=== PATIENT | female | born 1975 | race Caucasian/White ===

== ENCOUNTER → 2017-10-24 | Outpatient (CLI) | payer BC ==
[2017-10-24 09:13] VITALS: BP 112/78; PULSE 80; BMI 31.1
--- NOTE | 2017-10-24 10:31 | P.GSHP ---
History of Present Illness H&P Date: 10/24/17 Chief Complaint: changes on ultrasound of the breast Patient on a routine mammogram was noted to have changes noted in the left breast in September 2017, an ultrsound was felt to be non-suspicious and repeat diagnostic mammogram in 6 months recommended. The right breast was tender which has resolved but n ultrasound of that side did not show anything of concern. Patient does not feel anything in her breast. Patient complains of left nipple discharge. The color is amin, no blood. This has been present for about 1 year. It happens spontaneously. family history: paternal grandparents cancer uncertain of type cousin: bone cancer menarche:11 : 3, first live at 26, breast fed: none; 1 termination at 19 does not have periods has Nexplanon, needs changed every 5 years for Control hormones: none social: 1/2 PPD alcohol: none drugs: none past surgical history: 1. two nodes removed form neck 2. G/B 3. panniculectomy 4. lap band removed and the sleeve 5. two C-Sections past medical history: 1. HTN 2. heart burn 3. migrains 4. anxiety and depression - Constitutional Constitutional: Reports as per HPI, Reports sweats - EENT Eyes: denies blurred vision, denies pain Ears: deny: decreased hearing, earache Ears, nose, mouth and throat: Reports headache, Denies sore throat - Breasts Breasts: bilateral: as per HPI - Cardiovascular Cardiovascular: Denies chest pain, Denies shortness of breath - Respiratory Respiratory: Denies cough, Denies 7 - Gastrointestinal Gastrointestinal: Denies abdominal pain, Denies diarrhea, Denies nausea, Denies vomiting - Genitourinary (Female) Genitourinary: Reports as per HPI - Menstruation Menstruation: Reports amenorrhea on BC - Genitourinary (Male) Genitourinary: Denies dysuria, Denies hematuria - Musculoskeletal Musculoskeletal: Reports myalgias - Integumentary Integumentary: Reports pruritus, Denies rash - Neurological Neurological: Reports migraines, Reports paresthesias, Denies numbness, Denies weakness - Psychiatric Psychiatric: Reports anxiety, Reports depression - Endocrine Endocrine: Reports fatigue, Denies weight change - Hematologic/Lymphatic Hematologic/Lymphatic: Reports as per HPI - Allergic/Immunologic Allergic/Immunologic: Reports seasonal allergies Past Medical History Past Medical History: No Reported History History of Any Multi-Drug Resistant Organisms: None Reported Past Surgical History: Bariatric Surgery, Section Additional Past Surgical History / Comment(s): GALL BLADDER REMOVED IN 2003, LAP BAND 2008, GASTRIC SLEEVE 2013, LYMPHNODE REMOVAL (ENLARGED) Past Psychological History: Anxiety, Depression Smoking Status: Current every day smoker - Past Family History Mother Family Medical History: Fibromyalgia, Osteoarthritis (OA) Father Family Medical History: Osteoarthritis (OA) Additional Family Medical History / Comment(s): UNKNOWN HEART ISSUE Medications and Allergies Home Medications Medication Instructions Recorded Confirmed Type Citalopram Hydrobromide [CeleXA] 20 tab PO DAILY 10/24/17 10/24/17 History Cyclobenzaprine [Flexeril] 10 tab PO PC-BID 10/24/17 10/24/17 History Lisinopril-Hctz 10-12.5 mg 10 tab PO DAILY 10/24/17 10/24/17 History [Zestoretic 10-12.5] Omeprazole 20 cap PO DAILY 10/24/17 10/24/17 History Rizatriptan Odt [Maxalt IT PROGRAM AUDITOR] 10 tab PO PC-BID 10/24/17 10/24/17 History Topiramate [Topamax] 50 tab PO DAILY 10/24/17 10/24/17 History busPIRone HCL 10 tab PO DAILY 10/24/17 10/24/17 History Allergies Allergy/AdvReac Type Severity Reaction Status Date / Time ibuprofen Allergy Chest Pain Unverified 10/24/17 09:40 NSAIDS (Non-Steroidal Allergy Chest Pain Unverified 10/24/17 09:40 Anti-Inflamma Surgical - Exam Vital Signs Pulse BP Pulse Ox 80 112/78 100 10/24/17 09:07 10/24/17 09:07 10/24/17 09:07 - General obese - Eyes normal ocular movement, no icteric - ENT normal pinna - Neck no masses, trachea midline - Respiratory normal respiratory effort, clear to auscultation - Cardiovascular Rhythm: regular Heart Sounds: normal: S1, S2 - Abdomen Abdomen: soft, non tender - Neurologic no disoriented, no combative - Musculoskeletal normal gait, normal posture - Psychiatric oriented to time, oriented to person, oriented to place, speech is normal, memory intact Breast exam: right breast: smaller than the left breast, fibrocystic changes no masses of concern right axilla: no adenopathy of concern left breast: larger than the right breast, fibrocystic changes, left breast nipple discharge amin, hemocult negative left axilla: no adenopathy of concern Results mammogram reports reviewed Assessment and Plan Assessment: Imp/Plan: 1. monographic changes, repeat bilateral ultrasound in 6 months and left breast diagnostic mammgram in 6 months 2. left breast nipple discharge 3. myalgas 4. migrains Plan: 1. repeat x-rays as above 2. medical managements of medical problems 3. follow up in six months CC: Dr. Arnaldo Davis
--- NOTE | 2017-10-24 13:46 | P.PN ---
Progress Note - Text Progress Note Date: 10/24/17 The patient underwent a left breast ultrasound. The left breast ultrasound revealed a complex cyst lesion/cyst in the area where the mammographic abnormality was noted. After review with radiology does been recommended that aspiration/possible biopsy be performed. The patient understands the risks and benefits and this will be scheduled in the near future. Impression/plan: 1. Left breast cyst aspiration/biopsy 2. Follow-up approximately a week after the procedure cc: Dr. Arnaldo Davis
== END | disposition home or self-care (01) ==
LOC: WWCWWP 09:01
PROVIDERS: ATTEND Surgery

== ENCOUNTER → 2017-10-24 | Outpatient (CLI) | payer BC ==
--- NOTE | 2017-10-24 14:25 | USB ---
Reason for exam: clinical finding. History: Taking hormonal contraceptives for 1 month. US Breast LT Technologist: Nataliia Kolb RT (R)(M) Left complete breast ultrasound includes all four quadrants, the retroareolar region and axilla. Finding demonstrates a 11 x 5 x 10mm cystic cluster at 12-12:30. Appears to correlate with mammographic abnoramlity. These results were verbally communicated with the patient and result sheet given to the patient on 10/24/17. ASSESSMENT: Suspicious, BI-RAD 4 RECOMMENDATION: Ultrasound core biopsy of the left breast. FNA +/- (can be performed if desired, as patient is anxious with strong family history) PRELIMINARY REPORT CALLED AND FAXED TO DR. WHITNEY ON 10/24/17.
== END | disposition home or self-care (01) ==
LOC: RADUSWWP 13:07
PROVIDERS: ATTEND Surgery
DX: R92.8 Other abnormal and inconclusive findings on diagnostic imaging of breast (principal)

== ENCOUNTER → 2017-11-04 | Day surgery (SDC) | payer BC ==
[2017-11-04 12:23] VITALS: RESP 16; BMI 29.2
[2017-11-04 13:56] VITALS: BP 113/81; PULSE 67; TEMP 98.1
--- NOTE | 2017-11-04 14:17 | USB ---
EXAMINATION TYPE: US biopsy breast VAD LT DATE OF EXAM: 11/04/2017 CLINICAL HISTORY: R92.8 ABN MAMMO. TECHNIQUE: Ultrasound guided core biopsy of left breast. COMPARISON: Ultrasound 10/24/2017 FINDINGS: The procedure of ultrasound guided core biopsy was explained to the patient. Benefits, alternatives, and risks were discussed. An informed consent was then obtained. The patient was placed in supine positioning for imaging and for the procedure. The overlying skin was prepped with Betadine and draped in usual sterile fashion. Lidocaine buffered with bicarbonate was used as anesthetic into the skin and subcutaneous tissue up to area of concern in the left breast. A small catherine was made with surgical scalpel. Under ultrasound guidance, a 12-gauge vacuum assisted biopsy gun device was used to obtain 4 core samples. A biopsy clip was left in biopsy location. The patient tolerated the procedure well without any immediate complication. Discharge instructions were discussed with the patient. The patient was kept in the radiology department for short stay after the procedure and then discharged home in stable condition. Postprocedure mammogram was obtained. Clip is present. IMPRESSION: 1. Successful ultrasound-guided vacuum-assisted core biopsy left breast 12:00 lesion. Recommendations: 1. Recommendations are pending pathology results. Pathology Results: Benign LEFT BREAST, NEEDLE CORE BIOPSY: Fibrocystic change. Recommendation Follow up ultrasound of the left breast in 6 months. WILDA
== END ==
LOC: RADUSWWP 11:53
PROVIDERS: ATTEND Surgery
DX: N60.12 Diffuse cystic mastopathy of left breast (principal); N63.20 Unspecified lump in the left breast, unspecified quadrant; Z88.6 Allergy status to analgesic agent; Z88.8 Allergy status to other drugs, medicaments and biological substances
CPT/HCPCS: 88305; 77065; 19083; A4648; J2001

== ENCOUNTER → 2017-11-14 | Outpatient (CLI) | payer BC ==
[2017-11-14 10:32] VITALS: BP 123/87; PULSE 87; BMI 29.2
--- NOTE | 2017-11-14 10:51 | P.PN ---
Progress Note - Text Progress Note Date: 11/14/17 Patient is status post left breast core biopsy on 11/04/17. pathology was fibrocystic disease. The lesion was seen on mammogram and also ultrasound. It was biopsied via ultrasound. The x-rays were reviewed with the radiologist and felt could repeat mammogram in 6 months with an appointment at that time. The patient has no complaints. PE: left breast: mild echymosis at the biopsy site no hematoma of concern no infection IMP/PlLAN: 1.BENIGN core biopsy of the left breast, follow up in 6 months cc: DR. Arnaldo Davis
== END ==
LOC: WWCWWP 09:45
PROVIDERS: ATTEND Surgery
DX: N60.12 Diffuse cystic mastopathy of left breast (principal); Z53.9 Procedure and treatment not carried out, unspecified reason

== ENCOUNTER → 2020-02-08 | Outpatient (CLI) | payer BC ==
--- NOTE | 2020-02-08 11:28 | FL ---
EXAMINATION TYPE: FL barium swallow w video DATE OF EXAM: 02/08/2020 MODIFIED SWALLOW / DEGLUTITION STUDY CLINICAL HISTORY: Dysphagia. History of neurological syndrome or disorder. TECHNIQUE: Deglutition study is performed utilizing thin liquid barium, honey and nectar thick liqui d barium, barium thick portable, and barium coated cracker. Total of 56 seconds of fluoroscopic time. 0 spot images saved to PACS. COMPARISON: None. FINDINGS: The oral and pharyngeal phases show satisfactory initiation and propagation with all modali ties tested. Normal mastication is seen with solid modalities tested. There is no evidence of penet ration or aspiration with any modality tested. No significant pharyngeal residue was appreciated. IMPRESSION: Normal deglutition study. Please refer to speech therapist notes for further details if necessary.
== END | disposition home or self-care (01) ==
LOC: RADFLMAIN 10:24
PROVIDERS: ATTEND Family Medicine
DX: R13.10 Dysphagia, unspecified (principal)
CPT/HCPCS: 74230

== ENCOUNTER → 2021-02-21 | Outpatient (CLI) | payer BC ==
--- NOTE | 2021-02-21 15:39 | XR ---
Lumbosacral spine HISTORY: Back pain 5 views of lumbosacral spine, no comparisons Lumbar vertebral bodies show preserved height and alignment. Mineralization may be slightly reduced. There is multilevel spondylosis. Some loss of disc height is present at 4, L2-3 and L1-2, L4-5. Scler osis is present in the posterior elements of the lower lumbar spine. There is no evident spondylolysi s. Surgical clips are present right upper quadrant. IMPRESSION: Degenerative disc disease and facet arthropathy.
== END | disposition home or self-care (01) ==
LOC: RADXRMAIN 15:04
PROVIDERS: ATTEND Family Medicine
DX: M51.36 Other intervertebral disc degeneration, lumbar region (principal); M47.816 Spondylosis without myelopathy or radiculopathy, lumbar region
CPT/HCPCS: 72110

== ENCOUNTER 2021-09-18 12:16 | Observation (INO) | payer BC ==
[2021-09-18] MEDS ORDERED: SODIUM CHLORIDE 0.9% 500 ML 500 ML IV STA (12:48)
--- NOTE | 2021-09-18 13:04 | ED ---
General Adult HPI - General Chief complaint: Neuro Symptoms/Deficit Stated complaint: neuro issue Time Seen by Provider: 09/18/21 12:25 Source: patient, RN notes reviewed, old records reviewed Mode of arrival: ambulatory Limitations: no limitations - History of Present Illness Initial comments: This is a 46-year-old female who presents emergency department stating that on she was having some double vision she can only see normal out of one ey e. Patient states that she also is having trouble expressing herself and her speech was very slow. Patient states his symptoms continued Saturday and Saturday and today there pretty much resolved but her neurologist told her to come to the emergency department. Evaluated. Patient states she feels so she still can't think straight but she has no obvious deficits. She denies any headache p atient denies numbness or weakness. Patient denies any chest pain palpitations difficulty breathing shortness of breath. Patient denies abdominal pain patient has nausea vomiting diarrhea. Patient denies any recent fever chills or cough. 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] 10 mg PO BID PRN 10/24/17 09/18/21 Topiramate [Topamax] 50 tab PO BID 10/24/17 09/18/21 busPIRone HCL 10 tab PO TID 10/24/17 09/18/21 Albuterol Sulfate [Albuterol 2 puff PO RT-Q6H PRN 09/18/21 09/18/21 Sulfate Hfa] Baclofen [Lioresal] 10 mg PO QID 09/18/21 09/18/21 Citalopram Hydrobromide [CeleXA] 40 mg PO HS 09/18/21 09/18/21 Folic Acid 1 mg PO HS 09/18/21 09/18/21 Gabapentin 300 mg PO TID 09/18/21 09/18/21 Guselkumab [Tremfya] 100 mg SQ Q56D 09/18/21 09/18/21 Magnesium 200 mg PO DAILY 09/18/21 09/18/21 Meclizine [Antivert] 25 mg PO TID PRN 09/18/21 09/18/21 Mexiletine HCl 150 mg PO HS 09/18/21 09/18/21 Pantoprazole Sodium [Protonix] 40 mg PO DAILY 09/18/21 09/18/21 Simvastatin [Zocor] 40 mg PO HS 09/18/21 09/18/21 Sucralfate [Carafate] 1 gm PO ACHS 09/18/21 09/18/21 Topiramate [Topamax] 50 mg PO BID 09/18/21 09/18/21 carBAMazepine [TEGretol XR] 600 mg PO Q12H 09/18/21 09/18/21 lisinopriL [Zestril] 5 mg PO HS 09/18/21 09/18/21 traZODone HCL 50 - 100 mg PO HS PRN 09/18/21 09/18/21 Allergies Allergy/AdvReac Type Severity Reaction Status Date / Time ibuprofen Allergy Mild Chest Pain Verified 09/18/21 14:19 NSAIDS (Non-Steroidal Allergy Chest Pain Verified 09/18/21 14:19 Anti-Inflamma prochlorperazine AdvReac Hallucinati Verified 09/18/21 14:19 [From Compazine] ons Review of Systems ROS Statement: Those systems with pertinent positive or pertinent negative responses have been documented in the HPI. ROS Other: All systems not noted in ROS Statement are negative. Past Medical History Past Medical History: GERD/Reflux, Hypertension Additional Past Medical History / Comment(s): migraines, autoimmune disease History of Any Multi-Drug Resistant Organisms: None Reported Past Surgical History: Bariatric Surgery, Section, Cholecystectomy Additional Past Surgical History / Comment(s): LAP BAND 2008, GASTRIC SLEEVE 2013, LYMPHNODE REMOVAL (ENLARGED) x2 bilateral neck 1997. Past Anesthesia/Blood Transfusion Reactions: No Reported Reaction Past Psychological History: Anxiety, Depression Past Alcohol Use History: Rare Past Drug Use History: None Reported - Past Family History Mother Family Medical History: Fibromyalgia, Osteoarthritis (OA) Father Family Medical History: Osteoarthritis (OA) Additional Family Medical History / Comment(s): UNKNOWN HEART ISSUE General Exam - General Exam Comments Initial Comments: GENERAL: Patient is well-developed and well-nourished. Patient is nontoxic and well- hydrated and is in no acute distress. ENT: Neck is soft and supple. No significant lymphadenopathy is noted. Oropharynx is clear. Moist mucous membranes. Neck has full range of motion without eliciting any pain. EYES: The sclera were anicteric and conjunctiva were pink and moist. Extraocular movements were intact and pupils were equal round and reactive to light. Eyelids were unremarkable. PULMONARY: Unlabored respirations. Good breath sounds bilaterally. No audible rales rhonchi or wheezing was noted. CARDIOVASCULAR: There is a regular rate and rhythm without any murmurs gallops or rubs. ABDOMEN: Soft and nontender with normal bowel sounds. SKIN: Skin is clear with no lesions or rashes and otherwise unremarkable. NEUROLOGIC: Patient is alert and oriented x3. Cranial nerves II through XII are grossly intact. Motor and sensory are also intact. Normal speech, volume and content. Symmetrical smile. NIH is 0 MUSCULOSKELETAL: Normal extremities with adequate strength and full range of motion. No lower extremity swelling or edema. No calf tenderness. LYMPHATICS: No significant lymphadenopathy is noted PSYCHIATRIC: Normal psychiatric evaluation. Limitations: no limitations Course Vital Signs 09/18/21 12:22 Temperature 98.4 F Pulse Rate 81 Respiratory 16 Rate Blood Pressure 128/88 O2 Sat by Pulse 97 Oximetry Medical Decision Making - Medical Decision Making EKG shows sinus rhythm at 72 bpm CA interval 166 dresses 95 QT interval 360 QTC is 392. Patient's EKG shows no ST segment elevation or depression. Chest x-ray shows no acute abnormality. CT of the brain shows no acute abnormalities. CT angiogram of the head neck shows a little compression at one point on the carotid artery secondary to possibly a lymph node. I spoke with Dr. Landrum he agreed to admit the patient I admitted the patient and I admitted the patient consult the neurology. - Lab Data Result diagrams: 09/18/21 12:45 09/18/21 12:45 Lab Results 09/18/21 09/18/21 09/18/21 Range/Units 12:45 12:45 12:45 WBC 4.6 (3.8-10.6) k/uL RBC 4.07 (3.80-5.40) m/uL Hgb 12.3 (11.4-16.0) gm/dL Hct 39.2 (34.0-46.0) % MCV 96.4 (80.0-100.0) fL MCH 30.1 (25.0-35.0) pg MCHC 31.2 (31.0-37.0) g/dL RDW 14.0 (11.5-15.5) % Plt Count 221 (150-450) k/uL MPV 8.5 Neutrophils % 59 % Lymphocytes % 32 % Monocytes % 5 % Eosinophils % 2 % Basophils % 0 % Neutrophils # 2.7 (1.3-7.7) k/uL Lymphocytes # 1.5 (1.0-4.8) k/uL Monocytes # 0.3 (0-1.0) k/uL Eosinophils # 0.1 (0-0.7) k/uL Basophils # 0.0 (0-0.2) k/uL PT 9.7 (9.0-12.0) sec INR 0.9 (<1.2) APTT 23.7 (22.0-30.0) sec Sodium 139 (137-145) mmol/L Potassium 4.4 (3.5-5.1) mmol/L Chloride 107 (98-107) mmol/L Carbon Dioxide 23 (22-30) mmol/L Anion Gap 9 mmol/L BUN 17 (7-17) mg/dL Creatinine 0.80 (0.52-1.04) mg/dL Est GFR (CKD-EPI)AfAm >90 (>60 ml/min/1.73 sqM) Est GFR (CKD-EPI)NonAf 88 (>60 ml/min/1.73 sqM) Glucose 91 (74-99) mg/dL Calcium 8.5 (8.4-10.2) mg/dL Total Bilirubin 0.6 (0.2-1.3) mg/dL AST 30 (14-36) U/L ALT 22 (4-34) U/L Alkaline Phosphatase 78 (38-126) U/L Troponin I (0.000-0.034) ng/mL Total Protein 7.2 (6.3-8.2) g/dL Albumin 4.1 (3.5-5.0) g/dL 09/18/21 Range/Units 12:45 WBC (3.8-10.6) k/uL RBC (3.80-5.40) m/uL Hgb (11.4-16.0) gm/dL Hct (34.0-46.0) % MCV (80.0-100.0) fL MCH (25.0-35.0) pg MCHC (31.0-37.0) g/dL RDW (11.5-15.5) % Plt Count (150-450) k/uL MPV Neutrophils % % Lymphocytes % % Monocytes % % Eosinophils % % Basophils % % Neutrophils # (1.3-7.7) k/uL Lymphocytes # (1.0-4.8) k/uL Monocytes # (0-1.0) k/uL Eosinophils # (0-0.7) k/uL Basophils # (0-0.2) k/uL PT (9.0-12.0) sec INR (<1.2) APTT (22.0-30.0) sec Sodium (137-145) mmol/L Potassium (3.5-5.1) mmol/L Chloride (98-107) mmol/L Carbon Dioxide (22-30) mmol/L Anion Gap mmol/L BUN (7-17) mg/dL Creatinine (0.52-1.04) mg/dL Est GFR (CKD-EPI)AfAm (>60 ml/min/1.73 sqM) Est GFR (CKD-EPI)NonAf (>60 ml/min/1.73 sqM) Glucose (74-99) mg/dL Calcium (8.4-10.2) mg/dL Total Bilirubin (0.2-1.3) mg/dL AST (14-36) U/L ALT (4-34) U/L Alkaline Phosphatase (38-126) U/L Troponin I <0.012 (0.000-0.034) ng/mL Total Protein (6.3-8.2) g/dL Albumin (3.5-5.0) g/dL Disposition Clinical Impression: TIA (transient ischemic attack) Disposition: ADMITTED IP TO THIS HOSP Referrals: Claudia Lino MD [Primary Care Provider] - 1-2 days Time of Disposition: 15:31
[2021-09-18 13:05] LABS: Basophils % (A) 0 %; Eosinophils # (A) 0.1 k/uL (0-0.7); Eosinophils % (A) 2 %; HCT 39.2 % (34.0-46.0); HGB 12.3 gm/dL (11.4-16.0); Lymphocytes # (A) 1.5 k/uL (1.0-4.8); Lymphocytes % (A) 32 %; MCH 30.1 pg (25.0-35.0); MCHC 31.2 g/dL (31.0-37.0); MCV 96.4 fL (80.0-100.0); Mean Platelet Volume 8.5; Monocytes # (A) 0.3 k/uL (0-1.0); Monocytes % (A) 5 %; Neutrophils # (A) 2.7 k/uL (1.3-7.7); Neutrophils % (A) 59 %; Platelet Count 221 k/uL (150-450); RBC 4.07 m/uL (3.80-5.40); WBC 4.6 k/uL (3.8-10.6)
[2021-09-18 13:14] LABS: INR 0.9 (<1.2); Partial Thromboplastin Time 23.7 sec (22.0-30.0); Prothrombin Time 9.7 sec (9.0-12.0)
--- NOTE | 2021-09-18 13:48 | XR ---
EXAMINATION TYPE: XR chest 2V DATE OF EXAM: 09/18/2021 COMPARISON: NONE HISTORY: Altered mental status TECHNIQUE: Frontal and lateral views of the chest are obtained. FINDINGS: Increased density of the mid and lower lung zones bilaterally, likely due to the overlying breast and chest wall shadows. Grossly unremarkable lungs otherwise. No sizable pleural effusion or definite pneumothorax. No gross cardiomegaly. Mild degenerative change s of the lower thoracic spine. IMPRESSION: As above.
[2021-09-18 13:59] LABS: ALT 22 U/L (4-34); AST 30 U/L (14-36); African American GFR (CKD) >90 (>60 ml/min/1.73 sqM); Albumin 4.1 g/dL (3.5-5.0); Alkaline Phosphatase 78 U/L (38-126); Anion Gap 9 mmol/L; Blood Urea Nitrogen 17 mg/dL (7-17); Calcium 8.5 mg/dL (8.4-10.2); Carbon Dioxide 23 mmol/L (22-30); Chloride 107 mmol/L (98-107); Glucose 91 mg/dL (74-99); Non-African American GFR(CKD) 88 (>60 ml/min/1.73 sqM); Sodium 139 mmol/L (137-145); Total Bilirubin 0.6 mg/dL (0.2-1.3); Total Protein 7.2 g/dL (6.3-8.2)
--- NOTE | 2021-09-18 14:00 | CT ---
EXAMINATION TYPE: CT brain wo con DATE OF EXAM: 09/18/2021 COMPARISON: None. HISTORY: memory loss, GONZALEZ, double vision, loss of balance CT DLP: 1001 mGycm. Automated Exposure Control for Dose Reduction was Utilized. TECHNIQUE: CT scan of the head is performed without contrast. FINDINGS: There is no acute intracranial hemorrhage, mass effect, or midline shift identified. The ventricles and sulci are within normal limits in size. Castillo-white matter differentiation is maintai radha. Bilateral basal ganglia calcifications. Bend-of-xwsbqysp fluid in the bilateral ethmoid and maxi llary sinuses. Globes are intact bilaterally. IMPRESSION: No acute intracranial hemorrhage or midline shift is seen. Bilateral Acute maxillary and ethmoid sinus disease.
--- NOTE | 2021-09-18 14:15 | CT ---
EXAMINATION TYPE: CT angio head neck DATE OF EXAM: 09/18/2021 HISTORY: memory loss, GONZALEZ, double vision, loss of balance COMPARISON: Nonenhanced CT brain performed earlier same day. CT DLP: 555.5 mGycm. Automated Exposure Control for Dose Reduction was Utilized. TECHNIQUE: CTA scan of the head and neck is performed with IV Contrast, patient injected with 65 mL of Isovue 370, axial images are obtained, coronal and sagittal reformatted images are reviewed. 3D re constructed images are created on an independent workstation and reviewed. FINDINGS: Carotid/Vascular Structures: Motion artifacts. Slightly reduced caliber of the most superior aspect o f the right common carotid artery just inferior to its bifurcation with adjacent 5 mm soft tissue nod ule/lymph node (image #[id number], series [id number]), nonspecific. Otherwise normal caliber and enhancement of the neck arteries and intracranial arteries without significant stenosis, occlusion, dissection, aneurys m or AV malformation. Patent major intracranial venous sinuses. Other: No intracranial abnormal enhancement. Mucosal thickening of the maxillary sinuses and ethmoid air cells. Right thyroid lobe marginally enhancing lesion measuring 17 mm, for correlation with thyro id ultrasound results. IMPRESSION: Smooth indentation with slightly reduced caliber of the most superior aspect of the right common god[place] tid artery as described above, possibly due to adjacent lymph node/nodule, nonspecific. Further PET s can assessment can be considered. Otherwise no significant arterial abnormality is seen head or the neck. Incidental findings and recom mendation as described above.
[2021-09-18 14:21] LABS: Potassium 4.4 mmol/L (3.5-5.1)
[2021-09-18] MEDS ORDERED: ACETAMINOPHEN TAB 500 MG TAB PO STA (16:14)
[2021-09-18] MEDS ORDERED: ONDANSETRON 4 MG/2 ML VIAL IVP STA (19:09)
[2021-09-18] MEDS ORDERED: ALBUTEROL HFA INHALER INHALATION PRN (19:48)
[2021-09-18] MEDS ORDERED: AUTO INJCT SQ SCH (20:00)
[2021-09-18] MEDS ORDERED: GUSELKUMAB 100 MG/ML SQ SCH (20:00)
[2021-09-18] MEDS: BACLOFEN 10 MG TAB PO SCH (21:28)
[2021-09-18] MEDS: TOPIRAMATE 25 MG TAB PO SCH (21:28)
[2021-09-18] MEDS: CITALOPRAM HYDROBROMIDE 20 MG TAB PO SCH (21:28)
[2021-09-18] MEDS: busPIRone HCl 10 MG TAB PO SCH (21:29)
[2021-09-18] MEDS: lisinopriL 5 MG TAB PO SCH (21:29)
[2021-09-18] MEDS: ATORVASTATIN 20 MG TAB PO SCH (21:29)
[2021-09-18] MEDS: GABAPENTIN 300 MG CAP PO SCH (21:29)
--- NOTE | 2021-09-18 21:35 | P.HPIM ---
History of Present Illness H&P Date: 09/18/21 HISTORY OF PRESENT ILLNESS 46-year-old female one of Dr. Lino's patient with past medical history of fibromyalgia, cramp fasciculation syndrome, history of hypertension and hyperlipidemia who apparently seen a neurologist at [facility] for cramp fasciculation syndrome been followed for some urology Sign and symptoms similar to multiple sclerosis except never been diagnosed with MS. Patient apparently developed to have weird symptoms since consistent with mild paresthesia of the right upper extremity with double vision and memory loss along with significant abnormal balance and gait. She refuses to go to the emergency room about point but her symptoms where slightly bit better but not resolve on Saturday her symptoms become much worse apparently she called her urologist in [facility] with cyst of having patient comes for evaluation in the emergency department. Patient was seen and evaluated at the time she continue complain of mild paresthesia of the right upper extremity still having to feel with mild double vision along with expressive aphasia Kathy symptoms and slight confusion with generalized weakness and fatigue overall not been able to ambulate and walk on her own she declined any shortness of breath or chest pain no generalized abdominal pain and discomfort had feeling of low- grade temperature with no chills.was seen and evaluated her lab with chemistry CBC PT/INR troponin were all normal. Patient had CT of the brain showed no acute intracranial hemorrhage or midline shift bilateral acute maxillary and ethmoid sinus disease was found. CTA was done as well and shows smooth indentation with slight the reduced caliber of the most superior aspect of the right common carotid artery possibly due to adjacent lymph node/nodular. Otherwise rest of her CTA was negative. Chest x-ray showed no infiltrate or any other abnormality. Patient was admitted to the hospital at this point with above diagnoses with be seen neurology workup for TIA/CVA will be done at this time. Whether she is going to go for an MRI of the brain or not to be determined by neurology. REVIEW OF SYSTEMS Constitutional: No fever, no chills, no night sweats. No weight change. No weakness, fatigue or lethargy. No daytime sleepiness. EENT: No headache. no loss of vision. No loss of Hearing, no ringing in the ears, no dizziness. No nasal drainage or congestion. No epistaxis. No sore throat.positive double vision. Lungs: No shortness of breath, cough, no sputum production. No wheezing. Cardiovascular: No chest pain, no lower extremity edema. No palpitations. No paroxysmal nocturnal dyspnea. No orthopnea. No lightheadedness or dizziness. No syncopal episodes. Abdominal: No abdominal pain. No nausea, vomiting. No diarrhea. No constipation. No bloody or tarry stools.. No loss of appetite. Genitourinary: No dysuria, increased frequency, urgency. No urinary retention. Musculoskeletal: generalized muscle pain and discomfort with generalized weakness abnormal gait balance with no fall no back pain slight paresthesia of the right side of her body. Integumentary: No wounds, no lesions. No rash or pruritus. No unusual bruising. No change in hair or nails. Neurologic: mild right-sided paresthesia, mild dysphagia, generalized weakness in the right side compared to the left side. Psychiatric: No depression. No anxiety. No mood swings. Endocrine: No abnormal blood sugars. No weight change. No excessive sweating or thirst. No cold intolerance. SOCIAL HISTORY she does not smoke, no alcohol use no use of marijuana or drugs. Patient is an live with her , she has been on disability since July 2020. FAMILY HISTORY father is living 75 a TIA, mother is living 70 with history of rheumatoid a rthritis, patient has brother and sister both are living and well and 2 children with no major medical problem. PHYSICAL EXAMINATION Gen: This is overweight laying in bed does not look in any respiratory distress. HEENT: Head is atraumatic, normocephalic. Pupils equal, round. Sclerae is anicteric. NECK: Supple. No JVD. No lymphadenopathy. No thyromegaly. LUNGS: Clear to auscultation. No wheezes or rhonchi. No intercostal retractions. HEART: Regular rate and rhythm. No murmur. ABDOMEN: Soft. Bowel sounds are present. No masses. No tenderness. EXTREMITIES: No pedal edema. No calf tenderness. NEUROLOGICAL: Patient is awake, alert and oriented x3. Cranial nerves 2 through 12 are grossly intact. slight numbness in the right side of her body not been able to find any weakness. Balance and gait still affected patient is not able to walk straight. ASSESSMENT AND PLAN 1.TIA/CVA: With generalized symptoms affecting the right side of her body has been on since with no worsening symptoms but not resolved. CAT scan and CT are negative, patient be seen neurology continue current management and we'll decide probably to place patient on dual antiplatelet agent this point, blood pressure has been well controlled will resume lisinopril titrate dose as needed. 2 double vision and paresthesia: Even though it sign and symptom of TIA not a clear whether patient have any further diagnostic methadone not with her neurologist the 24th patient had some of the cardiac current atypical sign and symptom of multiple sclerosis something probably should be explored. 3 history off cramps fasciculation syndrome: Has been seen neurologist at [facility] apparently has been on Topamax, gabapentin, carbamazepine and BuSpar along with baclofen. We will resume medication. 4 hyperlipidemia: Remain on simvastatin 40 mg daily. 5 severe GERD: Remain on pantoprazole. 6 chronic neuropathy: Continue patient on gabapentin. 7 chronic depression: Continue patient on trazodone along with Topamax and BuSpar. Continue citalopram 40 mg daily. 8 debility with abnormal balance and gait Will add physical therapy take patient off therapy. 9 GI prophylaxis: Continue Carafate and pantoprazole. 10 DVT prophylaxis: Early mobilization and knee-high CHI hose. CODE STATUS: Full code. Patient will be admitted to the hospital for a minimum of 2 night stay. Past Medical History Past Medical History: GERD/Reflux, Hypertension Additional Past Medical History / Comment(s): migraines, autoimmune disease History of Any Multi-Drug Resistant Organisms: None Reported Past Surgical History: Bariatric Surgery, Section, Cholecystectomy Additional Past Surgical History / Comment(s): LAP BAND 2008, GASTRIC SLEEVE 2013, LYMPHNODE REMOVAL (ENLARGED) x2 bilateral neck 1997. Past Anesthesia/Blood Transfusion Reactions: No Reported Reaction Past Psychological History: Anxiety, Depression Past Alcohol Use History: Rare Past Drug Use History: None Reported - Past Family History Mother Family Medical History: Fibromyalgia, Osteoarthritis (OA) Father Family Medical History: Osteoarthritis (OA) Additional Family Medical History / Comment(s): UNKNOWN HEART ISSUE Medications and Allergies Home Medications Medication Instructions Recorded Confirmed Type Rizatriptan Odt [Maxalt PLATE FITTER] 10 mg PO BID PRN 10/24/17 09/18/21 History Topiramate [Topamax] 50 tab PO BID 10/24/17 09/18/21 History busPIRone HCL 10 tab PO TID 10/24/17 09/18/21 History Albuterol Sulfate [Albuterol 2 puff PO RT-Q6H PRN 09/18/21 09/18/21 History Sulfate Hfa] Baclofen [Lioresal] 10 mg PO QID 09/18/21 09/18/21 History Citalopram Hydrobromide [CeleXA] 40 mg PO HS 09/18/21 09/18/21 History Folic Acid 1 mg PO HS 09/18/21 09/18/21 History Gabapentin 300 mg PO TID 09/18/21 09/18/21 History Guselkumab [Tremfya] 100 mg SQ Q56D 09/18/21 09/18/21 History Magnesium 200 mg PO DAILY 09/18/21 09/18/21 History Meclizine [Antivert] 25 mg PO TID PRN 09/18/21 09/18/21 History Mexiletine HCl 150 mg PO HS 09/18/21 09/18/21 History Pantoprazole Sodium [Protonix] 40 mg PO DAILY 09/18/21 09/18/21 History Simvastatin [Zocor] 40 mg PO HS 09/18/21 09/18/21 History Sucralfate [Carafate] 1 gm PO ACHS 09/18/21 09/18/21 History Topiramate [Topamax] 50 mg PO BID 09/18/21 09/18/21 History carBAMazepine [TEGretol XR] 600 mg PO Q12H 09/18/21 09/18/21 History lisinopriL [Zestril] 5 mg PO HS 09/18/21 09/18/21 History traZODone HCL 50 - 100 mg PO HS PRN 09/18/21 09/18/21 History Allergies Allergy/AdvReac Type Severity Reaction Status Date / Time ibuprofen Allergy Mild Chest Pain Verified 09/18/21 14:19 NSAIDS (Non-Steroidal Allergy Chest Pain Verified 09/18/21 14:19 Anti-Inflamma prochlorperazine AdvReac Hallucinati Verified 09/18/21 14:19 [From Compazine] ons Physical Exam Vitals: Vital Signs Temp Pulse Resp BP Pulse Ox 09/18/21 19:17 68 18 132/88 98 09/18/21 12:22 98.4 F 81 16 128/88 97 Intake and Output 09/18/21 09/18/21 09/18/21 06:59 14:59 22:59 Other: Weight 98.43 kg Results CBC & Chem 7: 09/18/21 12:45 09/18/21 12:45
[2021-09-18] MEDS ORDERED: SUMAtriptan succinate 50 MG TAB PO PRN (23:00)
[2021-09-18] MEDS ORDERED: MECLIZINE 25 MG TAB PO PRN (23:00)
[2021-09-18] MEDS: traZODone HCL 50 MG TAB PO PRN (23:20)
[2021-09-18] MEDS: traZODone HCL 100 MG TAB PO SCH (23:20)
[2021-09-18] MEDS: ACETAMINOPHEN TAB 325 MG TAB PO PRN (23:58)
[2021-09-19] MEDS: SUCRALFATE 1 GM TAB PO SCH ×4 (08:10→21:50)
[2021-09-19] MEDS: MAGNESIUM OXIDE 400 MG TAB PO SCH (08:10)
[2021-09-19] MEDS: BACLOFEN 10 MG TAB PO SCH ×4 (08:10→21:50)
[2021-09-19] MEDS: busPIRone HCl 10 MG TAB PO SCH ×3 (08:10→21:50)
[2021-09-19] MEDS: TOPIRAMATE 25 MG TAB PO SCH ×2 (08:11→21:50)
[2021-09-19] MEDS: GABAPENTIN 300 MG CAP PO SCH ×3 (08:11→21:50)
[2021-09-19] MEDS: PANTOPRAZOLE 40 MG TABLET PO SCH (08:11)
[2021-09-19 09:42] LABS: Chol/HDL Ratio 2.45 Ratio; LDL Cholesterol,Calculated 94.2 mg/dL (0.0-131.0)
--- NOTE | 2021-09-19 11:27 | P.CNNES ---
History of Present Illness Consult date: 09/19/21 Requesting physician: Chidi Boggs Reason for Consult: stroke,TIA History of Present Illness: This is a 46-year-old woman with medical history of migraine, fibromyalgia, cramp fasciculation syndrome, psoriatic arthritis, hypertension, hyperlipidemia who presented emergency department on 09/18/2021 for tingling of the right upper extremity with double vision, unsteady gait. Patient stated that this past she noticed she his having tingling of entire right upper extremity, double vision of left eye (side to side), worsening of her unsteady gait. She felt her symptoms are improving day by day and refused to seek medical attention. She does have chronic posterior base neck pain but denies any radiation. Denies of any focal weakness. She contacted her neurologist (Dr. Miller werner at [facility]) and was told to come to the hospital. Some of patient's home medication of Topamax 50mg 1 tablet twice a day, baclofen 10 mg 1 tablet 4 times a day, Tegretol 64 mg every 12 hours, gabapentin 300 mg 1 tablet 3 times a day, Zocor 40 mg daily at bedtime, folic acid 1 mg daily at bedtime, tremfya 100mg every 56 days. She has short term memory loss for the past 6 months. Patient stated she has been following up with her neurologist and had extensive testing (MRI Brain, C and T-spine, blood testing and so far everything has been negative). She had a lumbar puncture about a year ago and was negative. Had routine EEG and was negative. She was told she has cramp fasciculation syndrome. She had a follow-up appointment for neuropsych over at [facility] today. She received botox injections to her lower extremities. She does not have diagnosis of Multiple Sclerosis to her knowledge. She denies family history of seizures or multiple sclerosis to her knowledge. She does have family history of dementia on her mothers side (aunts and grand- mother at age of 70-80 years old). Some of the workup in the hospital consisted of: CBC with differential, chemistry panel, PT, PTT and INR is within normal limits CT of the head is reported as no acute intracranial hemorrhage or midline shift is seen. Bilateral acute maxillary and ethmoid sinus disease. CT angiography of the head and neck is reported as smooth indentation was slightly reduced caliber of the superior aspect of the right common carotid artery, possibly due to adjacent lymph node/nodule, nonspecific. Further PET scan assessment can be considered. Otherwise no significant arterial abnormality seen of the head and neck. Review of Systems Review of system: The 12 point system was reviewed and apparent positive and negative per HPI. Past Medical History Past Medical History: GERD/Reflux, Hypertension Additional Past Medical History / Comment(s): migraines, autoimmune disease History of Any Multi-Drug Resistant Organisms: None Reported Past Surgical History: Bariatric Surgery, Section, Cholecystectomy Additional Past Surgical History / Comment(s): LAP BAND 2008, GASTRIC SLEEVE 2013, LYMPHNODE REMOVAL (ENLARGED) x2 bilateral neck 1997. Past Anesthesia/Blood Transfusion Reactions: No Reported Reaction Past Psychological History: Anxiety, Depression Smoking Status: Former smoker Past Alcohol Use History: Rare Past Drug Use History: None Reported - Past Family History Mother Family Medical History: Fibromyalgia, Osteoarthritis (OA) Father Family Medical History: Osteoarthritis (OA) Additional Family Medical History / Comment(s): UNKNOWN HEART ISSUE Medications and Allergies Home Medications Medication Instructions Recorded Confirmed Type Rizatriptan Odt [Maxalt RESEARCH AND DEVELOPMENT SPECIALIST] 10 mg PO BID PRN 10/24/17 09/18/21 History Topiramate [Topamax] 50 tab PO BID 10/24/17 09/18/21 History busPIRone HCL 10 tab PO TID 10/24/17 09/18/21 History Albuterol Sulfate [Albuterol 2 puff PO RT-Q6H PRN 09/18/21 09/18/21 History Sulfate Hfa] Baclofen [Lioresal] 10 mg PO QID 09/18/21 09/18/21 History Citalopram Hydrobromide [CeleXA] 40 mg PO HS 09/18/21 09/18/21 History Folic Acid 1 mg PO HS 09/18/21 09/18/21 History Gabapentin 300 mg PO TID 09/18/21 09/18/21 History Guselkumab [Tremfya] 100 mg SQ Q56D 09/18/21 09/18/21 History Magnesium 200 mg PO DAILY 09/18/21 09/18/21 History Meclizine [Antivert] 25 mg PO TID PRN 09/18/21 09/18/21 History Mexiletine HCl 150 mg PO HS 09/18/21 09/18/21 History Pantoprazole Sodium [Protonix] 40 mg PO DAILY 09/18/21 09/18/21 History Simvastatin [Zocor] 40 mg PO HS 09/18/21 09/18/21 History Sucralfate [Carafate] 1 gm PO ACHS 09/18/21 09/18/21 History Topiramate [Topamax] 50 mg PO BID 09/18/21 09/18/21 History carBAMazepine [TEGretol XR] 600 mg PO Q12H 09/18/21 09/18/21 History lisinopriL [Zestril] 5 mg PO HS 09/18/21 09/18/21 History traZODone HCL 50 - 100 mg PO HS PRN 09/18/21 09/18/21 History Allergies Allergy/AdvReac Type Severity Reaction Status Date / Time ibuprofen Allergy Mild Chest Pain Verified 09/18/21 14:19 NSAIDS (Non-Steroidal Allergy Chest Pain Verified 09/18/21 14:19 Anti-Inflamma prochlorperazine AdvReac Hallucinati Verified 09/18/21 14:19 [From Compazine] ons Physical Examination - Vital Signs Vital Signs: Vital Signs Temp Pulse Pulse Resp BP BP Pulse Ox 09/19/21 07:00 97.9 F 63 14 136/77 97 09/19/21 02:03 98.3 F 64 18 104/68 96 09/19/21 01:29 86 18 09/18/21 23:56 98 F 86 18 131/88 95 09/18/21 21:55 78 18 136/67 98 09/18/21 19:17 68 18 132/88 98 09/18/21 12:22 98.4 F 81 16 128/88 97 Intake and Output 09/18/21 09/19/21 09/19/21 22:59 06:59 14:59 Intake Total 150 240 Balance 150 240 Intake: Oral 150 240 Other: # Voids 2 Weight 98.43 kg 97.8 kg GENERAL: The patient is lying in bed and is not in acute distress. CHEST: The heart rate is regular rate rhythm. No murmurs to auscultation. No carotid bruit bilaterally. LUNG: Clear to auscultation bilaterally no wheezing noted throughout. Not labored breathing. ABDOMEN/GI: Bowel sounds present in all 4 quadrants. No tenderness to palpation throughout. NEUROLOGICAL: Higher mental function: The patient is awake, alert, oriented to self, place and time. Patient is following commands. No aphasia and no neglect. Cranial nerves: The pupils are round, equal and reactive to light and accommodation. Visual valadez are full to confrontation throughout. Extraocular movement is intact no nystagmus is noted. Facial sensation is normal to touch throughout. The facial strength is normal throughout. Hearing is normal bilaterally to hand rub. Tongue is midline and moved [id number] without any difficulty. No dysarthria is noted. Shoulder shrug is normal bilaterally. Motor: Gait is slightly cautious, not swaying towards one side or other and does not need any assistance ambulating. The strength is bilateral hand theatrical agent are 5-, hip flexion is 5-. Otherwise 5 over 5 throughout. Normal tone and bulk. Cerebellum: Normal finger to nose heel to galan bilaterally. Sensation: Sensation is normal to touch throughout. Reflexes (right/left): Brachioradialis is 3+ and patellar are 3+. Patellar are 0 bilaterally (receives Botox injection),. Otherwise 2+ throughout. Plantars are downgoing bilaterally. Results - Laboratory Findings CBC and BMP: 09/18/21 12:45 09/18/21 12:45 Abnormal Lab Findings: Abnormal Labs 09/19/21 05:47 HDL Cholesterol 78.10 H Assessment and Plan Assessment: Acute Tingling of right upper extremity, diplopia of left eye and worsening of unsteady gait (since 09/14/2021): Unsure exact etiology. Rule out Demylinating disease--symptoms improving Fibromyalgia Cramp fasciculation syndrome Migraine Short term memory loss for past 6 months Psoriatic arthritis Hypertension and on presentation normotensive Hyperlipidemia Plan: I ordered MRI of the brain and cervical spine with and without PT, OT and W[employer]ET[employer]ER are consulted Continue neuro checks We'll defer the rest of the medical management to the primary team Patient had extensive testing by her Neurologist and will try to obtain record. She has neuropsych evaluation over at [facility] regarding her memory loss. Upon discharge the patient needs to follow-up with her neurologist (Dr. Bhatt over at [facility]) within 1-2 weeks. Thank you for the consultation. Juan Daniel Roblero M.D. Neuro-hospitalist Time with Patient: Greater than 30
[2021-09-19] MEDS: ACETAMINOPHEN TAB 325 MG TAB PO PRN (18:18)
[2021-09-19] MEDS ORDERED: ALPRAZolam 0.25 MG TAB PO STA (20:37)
[2021-09-19] MEDS ORDERED: ALPRAZolam 0.25 MG TAB PO PRN (20:38)
[2021-09-19] MEDS ORDERED: FOLIC ACID 1 MG TAB PO SCH (21:00)
[2021-09-19] MEDS ORDERED: MEXILETINE 150 MG CAP PO SCH (21:00)
[2021-09-19] MEDS: lisinopriL 5 MG TAB PO SCH (21:50)
[2021-09-19] MEDS: ATORVASTATIN 20 MG TAB PO SCH (21:50)
[2021-09-19] MEDS: CITALOPRAM HYDROBROMIDE 20 MG TAB PO SCH (21:50)
[2021-09-19] MEDS: traZODone HCL 100 MG TAB PO SCH (21:51)
[2021-09-19] MEDS: traZODone HCL 50 MG TAB PO PRN (21:51)
[2021-09-20] MEDS: SUCRALFATE 1 GM TAB PO SCH ×2 (07:32→12:31)
[2021-09-20] MEDS: GABAPENTIN 300 MG CAP PO SCH (08:12)
[2021-09-20] MEDS: busPIRone HCl 10 MG TAB PO SCH (08:12)
[2021-09-20] MEDS: BACLOFEN 10 MG TAB PO SCH ×2 (08:12→12:31)
[2021-09-20] MEDS: PANTOPRAZOLE 40 MG TABLET PO SCH (08:12)
[2021-09-20] MEDS: TOPIRAMATE 25 MG TAB PO SCH (08:12)
[2021-09-20] MEDS: MAGNESIUM OXIDE 400 MG TAB PO SCH (08:12)
--- NOTE | 2021-09-20 11:44 | P.PN ---
Subjective Progress Note Date: 09/19/21 HISTORY OF PRESENT ILLNESS 46-year-old female one of Dr. Lino's patient with past medical history of fibromyalgia, cramp fasciculation syndrome, history of hypertension and hyperl ipidemia who apparently seen a neurologist at [facility] for cramp fasciculation syndrome been followed for some urology Sign and symptoms similar to multiple sclerosis except never been diagnosed with MS. Patient apparently developed to have weird symptoms since consistent with mild paresthesia of the right upper extremity with double vision and memory loss along with significant abnormal balance and gait. She refuses to go to the emergency room about point but her symptoms where slightly bit better but not resolve on Saturday her symptoms become much worse apparently she called her urologist in [facility] with cyst of having patient comes for evaluation in the emergency department. Patient was seen and evaluated at the time she continue complain of mild paresthesia of the right upper extremity still having to feel with mild double vision along with expressive aphasia Kathy symptoms and slight confusion with generalized weakness and fatigue overall not been able to ambulate and walk on her own she declined any shortness of breath or chest pain no generalized abdominal pain and discomfort had feeling of low- grade temperature with no chills.was seen and evaluated her lab with chemistry CBC PT/INR troponin were all normal. Patient had CT of the brain showed no acute intracranial hemorrhage or midline shift bilateral acute maxillary and ethmoid sinus disease was found. CTA was done as well and shows smooth indentation with slight the reduced caliber of the most superior aspect of the right common carotid artery possibly due to adjacent lymph node/nodular. Otherwise rest of her CTA was negative. Chest x-ray showed no infiltrate or any other abnormality. Patient was admitted to the hospital at this point with above diagnoses with be seen neurology workup for TIA/CVA will be done at this time. Whether she is going to go for an MRI of the brain or not to be determined by neurology. 09/19: No new concerns from the patient. Patient was seen by speech therapy anddeficits were noted as well as no aspiration. Patient did have history of intermittent coughing with oral intake and difficulty with larger meds that was observed taking multiple pills without difficulty. Patient was also seen by PT and OT. No deficits were noted, recommendations to return home. Patient states that she is a little nauseated this morning after she got out of bed and walk to the bathroom. MRI is scheduled for today. Triglycerides 93, cholesterol 191, LDL 94, HDL 78. Vitamin B12 798. Folate greater than 20. TSH 2.760. Patient has been seen by neurology and we are currently waiting for MRI of the brain and cervical spine. REVIEW OF SYSTEMS Constitutional: No fever, no chills, no night sweats. No weight change. No weakness, fatigue or lethargy. No daytime sleepiness. EENT: No headache. no loss of vision. No loss of Hearing, no ringing in the ears, no dizziness. No nasal drainage or congestion. No epistaxis. No sore throat.positive double vision. Lungs: No shortness of breath, cough, no sputum production. No wheezing. Cardiovascular: No chest pain, no lower extremity edema. No palpitations. No paroxysmal nocturnal dyspnea. No orthopnea. No lightheadedness or dizziness. No syncopal episodes. Abdominal: No abdominal pain. No nausea, vomiting. No diarrhea. No constipation. No bloody or tarry stools.. No loss of appetite. Genitourinary: No dysuria, increased frequency, urgency. No urinary retention. Musculoskeletal: generalized muscle pain and discomfort with generalized we akness abnormal gait balance with no fall no back pain slight paresthesia of the right side of her body. Integumentary: No wounds, no lesions. No rash or pruritus. No unusual bruising. Neurologic: mild right-sided paresthesia, mild dysphagia, generalized weakness in the right side compared to the left side. Psychiatric: No depression. No anxiety. No mood swings. Endocrine: No abnormal blood sugars. No weight change. No excessive sweating or thirst. PHYSICAL EXAMINATION Gen: This is overweight 46-year-old female laying in bed does not look in any respiratory distress. HEENT: Head is atraumatic, normocephalic. Pupils equal, round. Sclerae is anict matilda. NECK: Supple. No JVD. No lymphadenopathy. No thyromegaly. LUNGS: Clear to auscultation. No wheezes or rhonchi. No intercostal retractions. HEART: Regular rate and rhythm. No murmur. ABDOMEN: Soft. Bowel sounds are present. No masses. No tenderness. EXTREMITIES: No pedal edema. No calf tenderness. NEUROLOGICAL: Patient is awake, alert and oriented x3. Cranial nerves 2 through 12 are grossly intact. slight numbness in the right side of her body not been able to find any weakness. Balance and gait still affected patient is not able to walk straight. ASSESSMENT AND PLAN 1.TIA/CVA: With generalized symptoms affecting the right side of her body has been on since with no worsening symptoms but not resolved. CAT scan and CT are negative, neurology consult appreciated. MRI of the brain ordered. 2 double vision and paresthesia: Even though it sign and symptom of TIA not a clear whether patient have any further diagnostic methadone not with her neurologist the patient had some of the cardiac current atypical sign and symptom of multiple sclerosis something probably should be explored. 3 history off cramps fasciculation syndrome: Has been seen neurologist at [facility] apparently has been on Topamax, gabapentin, carbamazepine and BuSpar along with baclofen. We will resume medication. 4 hyperlipidemia: Remain on simvastatin 40 mg daily. 5 severe GERD: Remain on pantoprazole. 6 chronic neuropathy: Continue patient on gabapentin. 7 chronic depression: Continue patient on trazodone along with Topamax and BuSpar. Continue citalopram 40 mg daily. 8 debility with abnormal balance and gait Will add physical therapy take patient off therapy. 9 GI prophylaxis: Continue Carafate and pantoprazole. 10 DVT prophylaxis: Early mobilization and knee-high CHI hose. CODE STATUS: Full code. DISCHARGE PLAN Home Impression and plan of care have been directed as dictated by the signing physician. Amy Figueroa nurse practitioner acting as scribe for signing physician. Objective - Vital Signs Vital signs: Vital Signs Temp 98.3 F 09/19/21 02:03 Pulse 64 09/19/21 02:03 Resp 18 09/19/21 02:03 BP 104/68 09/19/21 02:03 Pulse Ox 96 09/19/21 02:03 Intake & Output 09/18/21 09/19/21 09/19/21 18:59 06:59 18:59 Intake Total 150 Balance 150 Weight 98.43 kg 98.43 kg Intake: Oral 150 Other: # Voids 2 - Labs CBC & Chem 7: 09/18/21 12:45 09/18/21 12:45
--- NOTE | 2021-09-20 11:47 | P.DS ---
Providers Date of admission: 09/18/21 15:33 Expected date of discharge: 09/20/21 Attending physician: Arnaldo Landrum Consults: 09/18/21 15:33 Consult Physician Routine Consulting Provider: Juan Daniel Roblero Consult Reason/Comments: TIA Do you want consulting provider notified?: Yes Primary care physician: Claudia Lino [facility] Course: HISTORY OF PRESENT ILLNESS 46-year-old female one of Dr. Lino's patient with past medical history of fibromyalgia, cramp fasciculation syndrome, history of hypertension and hyperlipidemia who apparently seen a neurologist at [facility] for cramp fasciculation syndrome been followed for some urology Sign and symptoms similar to multiple sclerosis except never been diagnosed with MS. Patient apparently developed to have weird symptoms since consistent with mild paresthesia of the right upper extremity with double vision and memory loss along with significant abnormal balance and gait. She refuses to go to the emergency room about point but her symptoms where slightly bit better but not resolve on Saturday her symptoms become much worse apparently she called her urologist in [facility] with cyst of having patient comes for evaluation in the emergency department. Patient was seen and evaluated at the time she continue complain of mild paresthesia of the right upper extremity still having to feel with mild double vision along with expressive aphasia Kathy symptoms and slight confusion with generalized weakness and fatigue overall not been able to ambulate and walk on her own she declined any shortness of breath or chest pain no generalized abdominal pain and discomfort had feeling of low- grade temperature with no chills.was seen and evaluated her lab with chemistry CBC PT/INR troponin were all normal. Patient had CT of the brain showed no acute intracranial hemorrhage or midline shift bilateral acute maxillary and ethmoid sinus disease was found. CTA was done as well and shows smooth indentation with slight the reduced caliber of the most superior aspect of the right common carotid artery possibly due to adjacent lymph node/nodular. Otherwise rest of her CTA was negative. Chest x-ray showed no infiltrate or any other abnormality. Patient was admitted to the hospital at this point with above diagnoses with be seen neurology workup for TIA/CVA will be done at this time. Whether she is going to go for an MRI of the brain or not to be determined by neurology. 09/19: No new concerns from the patient. Patient was seen by speech therapy anddeficits were noted as well as no aspiration. Patient did have history of intermittent coughing with oral intake and difficulty with larger meds that was observed taking multiple pills without difficulty. Patient was also seen by PT and OT. No deficits were noted, recommendations to return home. Patient states that she is a little nauseated this morning after she got out of bed and walk to the bathroom. MRI is scheduled for today. Triglycerides 93, cholesterol 191, LDL 94, HDL 78. Vitamin B12 798. Folate greater than 20. TSH 2.760. Patient has been seen by neurology and we are currently waiting for MRI of the brain and cervical spine. 09/20: No new concerns from the patient. Patient no events overnight. Patient remains afebrile, heart rate 71, blood pressure 105/70, pulse ox 96% on room air. MRI of the brain and cervical spine revealed no significant white matter changes to suggest demyelinating disease. No enhancing lesions. Acute on chronic paranasal sinus disease. No MRI evidence of demyelinating disease involving the cervical spine cord. Degenerative changes in the mid cervical spine as detailed above.. DISCHARGE DIAGNOSES 1. Tingling of the right upper extremity, diplopia of the left eye and worsening unsteady gait of unclear etiology 2 double vision and paresthesia. Recommend multiple sclerosis workup with her neurologist. 3 history off cramps fasciculation syndrome. 4 hyperlipidemia 5 severe GERD 6 chronic neuropathy 7 chronic depression 8 debility with abnormal balance and gait DISCHARGE PLAN Home Greater than 35 minutes was utilized and coordinating patient's discharge. Impression and plan of care have been directed as dictated by the signing physician. Amy Figueroa nurse practitioner acting as scribe for signing physician. Patient Condition at Discharge: Good Plan - Discharge Summary Discharge Rx Participant: No New Discharge Prescriptions: Continue busPIRone HCL 10 mg PO TID Topiramate [Topamax] 50 mg PO BID Rizatriptan Odt [Maxalt SPRING WINDER] 10 mg PO BID PRN PRN Reason: Migraine Headache Albuterol Sulfate [Albuterol Sulfate Hfa] 2 puff INHALATION RT-Q6H PRN PRN Reason: Shortness Of Breath Magnesium 200 mg PO DAILY Folic Acid 1 mg PO HS traZODone HCL 50 - 100 mg PO HS PRN PRN Reason: Insomnia Guselkumab [Tremfya] 100 mg SQ Q56D Sucralfate [Carafate] 1 gm PO ACHS Simvastatin [Zocor] 40 mg PO HS lisinopriL [Zestril] 5 mg PO HS Gabapentin 300 mg PO TID carBAMazepine [TEGretol XR] 600 mg PO Q12H Baclofen [Lioresal] 10 mg PO QID Meclizine [Antivert] 25 mg PO TID PRN PRN Reason: Vertigo Mexiletine HCl 150 mg PO HS Pantoprazole Sodium [Protonix] 40 mg PO DAILY Citalopram Hydrobromide [CeleXA] 40 mg PO HS Discharge Medication List Rizatriptan Odt [Maxalt SPRING WINDER] 10 mg PO BID PRN 10/24/17 [History] Topiramate [Topamax] 50 mg PO BID 10/24/17 [History] busPIRone HCL 10 mg PO TID 10/24/17 [History] Albuterol Sulfate [Albuterol Sulfate Hfa] 2 puff INHALATION RT-Q6H PRN 09/18/21 [History] Baclofen [Lioresal] 10 mg PO QID 09/18/21 [History] Citalopram Hydrobromide [CeleXA] 40 mg PO HS 09/18/21 [History] Folic Acid 1 mg PO HS 09/18/21 [History] Gabapentin 300 mg PO TID 09/18/21 [History] Guselkumab [Tremfya] 100 mg SQ Q56D 09/18/21 [History] Magnesium 200 mg PO DAILY 09/18/21 [History] Meclizine [Antivert] 25 mg PO TID PRN 09/18/21 [History] Mexiletine HCl 150 mg PO HS 09/18/21 [History] Pantoprazole Sodium [Protonix] 40 mg PO DAILY 09/18/21 [History] Simvastatin [Zocor] 40 mg PO HS 09/18/21 [History] Sucralfate [Carafate] 1 gm PO ACHS 09/18/21 [History] carBAMazepine [TEGretol XR] 600 mg PO Q12H 09/18/21 [History] lisinopriL [Zestril] 5 mg PO HS 09/18/21 [History] traZODone HCL 50 - 100 mg PO HS PRN 09/18/21 [History] Follow up Appointment(s)/Referral(s): Claudia Lino MD [Primary Care Provider] - 1 Week (Office closed please call to schedule your appointment. Thank you!) Patient Instructions/Handouts: Transient Ischemic Attack (DC) Activity/Diet/Wound Care/Special Instructions: Follow up with Neurologist in 1 week Discharge Disposition: HOME SELF-CARE
[2021-09-20] MEDS ORDERED: ALPRAZolam 0.25 MG TAB PO PRN (12:47)
[2021-09-20 13:32] VITALS: BP 95/68; PULSE 75; RESP 16; TEMP 98.2
[2021-09-20] MEDS ORDERED: ALPRAZolam 0.25 MG TAB PO STA (13:33)
--- NOTE | 2021-09-20 14:55 | MR ---
EXAMINATION TYPE: MR brain/cspine wo/w DATE OF EXAM: 09/20/2021 COMPARISON: CT brain from 2 days ago HISTORY: Right arm tingling, diplopia. Demyelinating disease TECHNIQUE: Multiplanar, multisequence images of the brain and brainstem and cervical spine all performed without and with IV contrast, utilizing 10 mL intravenous Gadavist gadolinium contrast is administered intra venously. Demyelinating disease protocol with additional Sagittal Flair sequence performed of the br ain and brainstem and PD sagittal sequence cervical spine performed. FINDINGS: BRAIN: T2 Lesions Present : No Approximate Number of Lesions: n/a Locations Identified : n/a Size of Reference Lesion(s): n/a Enhancing Lesion(s) Present: n/a T1 Hypointense Lesion(s) Present: n/a Change from Prior: n/a Diffusion weighted images demonstrate no evidence of a recent infarct or other diffusion abnormality. Mild prominence of CSF over bilateral frontal lobes consistent with mild frontal lobe atrophy. Ventr icular size satisfactory. Midline structures demonstrate normal morphology. The craniocervical junction appears within normal limits. Post contrast images demonstrate no abnormal enhancement. The dural venous sinuses appear pa tent. Moderate mucosal thickening involving ethmoid sinuses bilaterally with some patchy fluid. Moder ate mucosal thickening inferior bilateral maxillary sinuses with some dependent fluid on the right. G lobes are intact bilaterally. IMPRESSION: 1. No significant white matter changes to suggest demyelinating disease. No enhancing lesions. 2. Acute on chronic paranasal sinus disease redemonstrated. C-SPINE: FINDINGS: Sagittal images of the cervical spine show the craniocervical junction to appear within nor mal limits. The cervical and upper thoracic spinal cord is normal in course, caliber, and signal. V ertebral alignment is straightened. Mild to moderate disc space narrowing C5-C6 level otherwise the v ertebral body and intravertebral disk heights are normal. The bone marrow signal intensity is within normal limits. No abnormal postcontrast enhancement Axial images show C2-C3 and C3-C4 levels to appear within normal limits. Axial images at C4-C5 level show broad-based right paracentral disc protrusion effacing anterior thec al sac, there is additional left foraminal disc protrusion component causing asymmetric mild to moder ate left-sided neural foraminal narrowing. Axial images at C5-C6 level showed broad based posterior disc protrusion effacing the anterior thecal sac and causing [id number] bilateral neural foraminal narrowing. Axial images at C6-C7 and C7-T1 levels appear within normal limits. Some artifact on axial images but no definitive T2 hyperintense cord lesions or enhancing cord lesion s. There is there are 1.5 cm right thyroid nodule axial image 11 redemonstrated correlating with rece nt CTA neck study. IMPRESSION: No MRI evidence for demyelinating disease involvement in the cervical spinal cord. Degene rative changes in the mid cervical spine noted as detailed above.
--- NOTE | 2021-09-20 19:20 | P.PN ---
Subjective Progress Note Date: 09/20/21 The patient is seen at bedside and states she is doing well and denies of any further neurological issues. She stated she received a response from her neurology team from [facility] and was notified that she does not Multiple Sclerosis. We received record from [facility] regarding her prior neurological work-up: She had MRI Brain, C and T spine without contrast which is reported as no pathology to cause her symptoms. Has some disc buldge in C4-C6. No evidence for myelitis or MS. She had low normal folate and low Vitamin B12 and received injection for Vitamin B12. (her Vitamin B12 was as low as 190). Vitamin B12 level in 01/2021: 811. She had EEG on 11/2020 which was normal. CSF paraneoplastic panel is negaive DESTINI abs negative. Negative CSF lyme, VZV, HSV 1/2 and HSV PCR are non-detected, RAIZA RPR negative, negative OCB She had EMG with [facility] which revealed cramp fasciculation syndrome. Has lower limb dystonia and receiving Botox. Has chronic neck pain; mild cognitive impairement. Has history of bariatric surgery. Objective - Vital Signs Vital signs: Vital Signs Temp 98.2 F 09/20/21 13:30 Pulse 75 09/20/21 13:30 Resp 16 09/20/21 13:30 BP 95/68 09/20/21 13:30 Pulse Ox 96 09/20/21 13:30 Intake & Output 09/19/21 09/20/21 09/20/21 18:59 06:59 18:59 Intake Total 720 480 Balance 720 480 Weight 97.8 kg Intake: Oral 720 480 Other: # Voids 2 3 2 - Exam GENERAL: The patient is lying in bed and is not in acute distress. NEUROLOGICAL: Higher mental function: The patient is awake, alert, oriented to self, place and time. Patient is following commands. No aphasia and no neglect. Cranial nerves: The pupils are round, equal and reactive to light and accommodation. Visual valadez are full to confrontation throughout. Extraocular movement is intact no nystagmus is noted. Facial sensation is normal to touch throughout. The facial strength is normal throughout. Hearing is normal bilaterally to hand rub. Tongue is midline and moved [id number] without any difficulty. No dysarthria is noted. Shoulder shrug is normal bilaterally. Motor: Gait is slightly cautious, not swaying towards one side or other and does not need any assistance ambulating. 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 Otherwise 5 over 5 throughout. Normal tone and bulk. Cerebellum: Normal finger to nose heel to galan bilaterally. Sensation: Sensation is normal to touch throughout. Reflexes (right/left): Brachioradialis is 3+ and patellar are 3+. Patellar are 0 bilaterally (receives Botox injection),. Otherwise 2+ throughout. Plantars are downgoing bilaterally. SOME OF THE WORK-UP IN OUR FACILITY: Vitamin B12: 798 Serum folate >20 TSH: 2.760 CT of the head is reported as no acute intracranial hemorrhage or midline shift is seen. Bilateral acute maxillary and ethmoid sinus disease. CT angiography of the head and neck is reported as smooth indentation was slightly reduced caliber of the superior aspect of the right common carotid artery, possibly due to adjacent lymph node/nodule, nonspecific. Further PET scan assessment can be considered. Otherwise no significant arterial abnormality seen of the head and neck. - Labs CBC & Chem 7: 09/18/21 12:45 09/18/21 12:45 Assessment and Plan Assessment: Acute Tingling of right upper extremity, diplopia of left eye and worsening of unsteady gait (since 09/14/2021): Unsure exact etiology. Rule out Demylinating disease--symptoms improved Cramp fasciculation syndrome Limb dystonia Chronic Migraine Mild cognitive impairement (Short term memory loss for past 6 months) Psoriatic arthritis Hypertension and on presentation normotensive Hyperlipidemia Chronic neck pain History of bariatric surgery Plan: MRI of the brain and cervical spine with and without are pending. PT, OT and [employer] are consulted Continue neuro checks We'll defer the rest of the medical management to the primary team Patient had extensive testing by her Neurology team over at [facility] and negative for MS, negative paraneoplastic panel. MRI Brain and spinal cord were reported as no pathology to cause her symptoms. Upon discharge the patient needs to follow-up with her neurologist (Dr. Bhatt over at [facility]). If her imaging are negative for acute subacute changes or any enhancement then patient is clear from neurological perspective. The plan is discussed with nurse and primary team. I attempted to contact her but no response. Juan Daniel Roblero M.D. Neuro-hospitalist Time with Patient: Less than 30
== END 2021-09-20 15:30 | disposition home or self-care (01) ==
LOC: EC 12:16 → 6NMEDSUR 15:33
PROVIDERS: ADMIT Internal Medicine Geriatric Medicine; ATTEND Internal Medicine Geriatric Medicine
DX: R20.2 Paresthesia of skin (principal); H53.2 Diplopia; R26.81 Unsteadiness on feet; G31.84 Mild cognitive impairment of uncertain or unknown etiology; I10 Essential (primary) hypertension; K21.9 Gastro-esophageal reflux disease without esophagitis; G43.909 Migraine, unspecified, not intractable, without status migrainosus; M35.9 Systemic involvement of connective tissue, unspecified; M79.7 Fibromyalgia; R25.3 Fasciculation; R47.01 Aphasia; L40.50 Arthropathic psoriasis, unspecified; R53.81 Other malaise; G62.89 Other specified polyneuropathies; G24.9 Dystonia, unspecified; E78.5 Hyperlipidemia, unspecified; R11.0 Nausea; G89.29 Other chronic pain; M54.2 Cervicalgia; F32.A Depression, unspecified; F41.9 Anxiety disorder, unspecified; Z79.899 Other long term (current) drug therapy; Z88.6 Allergy status to analgesic agent; Z88.8 Allergy status to other drugs, medicaments and biological substances; Z87.891 Personal history of nicotine dependence; Z90.49 Acquired absence of other specified parts of digestive tract; Z98.84 Bariatric surgery status; Z98.891 History of uterine scar from previous surgery; Z98.890 Other specified postprocedural states; Z82.0 Family history of epilepsy and other diseases of the nervous system; Z82.61 Family history of arthritis; Z82.69 Family history of other diseases of the musculoskeletal system and connective tissue
CPT/HCPCS: 96361 ×2; 96374; 99285; 36415; 93005; 97162; 97166; 92610; 92523; 80061; 80053; 84443; 82607; 82746; 84484; 85025; 85610; 85730; 71046; 70496; 70450; 70498; 70553; 72156; G0378 ×3; J2405; Q9967; A9585

== ENCOUNTER → 2023-03-20 | Outpatient (CLI) | payer BC, MEDICARE ==
--- NOTE | 2023-03-21 12:57 | MR ---
EXAMINATION TYPE: MR knee RT wo con DATE OF EXAM: 03/20/2023 COMPARISON: Outside right knee x-ray March 13, 2023 HISTORY: Rt knee pain, locking, and swelling for 2 months. TECHNIQUE: Multiplanar, multisequence images of the knee is performed without IV contrast. FINDINGS: MEDIAL MENISCUS: Some medial extrusion of medial meniscus on coronal images. Triangular shaped increa sed signal posterior horn likely has some linear extension to inferior articular surface. LATERAL MENISCUS: Anterior and posterior horns are intact without tear. CRUCIATE LIGAMENTS: The anterior and posterior cruciate ligaments are intact and unremarkable. COLLATERAL LIGAMENTS: The medial collateral ligament and lateral collateral ligament complex are inta ct and unremarkable. EXTENSOR MECHANISM: Visualized quadriceps and patellar tendons are intact. EFFUSION: No significant suprapatellar joint effusion. POPLITEAL CYST: Small to tiny popliteal/russ cyst. TRICOMPARTMENT SPACES: Mild to moderate tricompartment joint space loss without significant spurring. CARTILAGE: Some early cartilaginous loss medial tibiofemoral compartment. BONE MARROW SIGNAL: No focal abnormal marrow signal is appreciated. OTHER: No additional significant abnormality is appreciated. IMPRESSION: 1. Mild to moderate tricompartment degenerative changes are present as detailed above. 2. At least intrasubstance but suspected full thickness tearing posterior horn of medial meniscus. 3. Small to tiny popliteal cyst.
== END | disposition home or self-care (01) ==
LOC: RADMRIMAIN 13:21
PROVIDERS: ATTEND Orthopaedic Surgery
DX: S83.241A Other tear of medial meniscus, current injury, right knee, initial encounter (principal); M17.11 Unilateral primary osteoarthritis, right knee; M71.21 Synovial cyst of popliteal space [Baker], right knee

== ENCOUNTER → 2023-03-29 | Outpatient (CLI) | payer BC, MEDICARE ==
[2023-03-29 20:59] LABS: Anion Gap 8.7 mmol/L (4.00-12.00); Carbon Dioxide 25.3 mmol/L (21.6-31.8); Potassium 4.3 mmol/L (3.5-5.5)
[2023-03-29 21:06] LABS: Basophils # (A) 0.02 X 10*3/uL (0.00-0.10); Basophils % (A) 0.4 %; Eosinophils # (A) 0.18 X 10*3/uL (0.04-0.35); Eosinophils % (A) 3.9 %; HGB 12.5 g/dL (12.0-15.0); Lymphocytes # (A) 2.08 X 10*3/uL (0.90-5.00); Lymphocytes % (A) 44.9 %; MCHC 32.1 g/dL (32.0-37.0); MCV 93.5 FL (80.0-97.0); Mean Platelet Volume 11.2 FL (9.5-12.2); Monocytes # (A) 0.24 X 10*3/uL (0.20-1.00); Monocytes % (A) 5.2 %; NRBC Per 100 WBC 0 X 10*3/uL (0.00-0.01); Neutrophils % (A) 45.4 %; Platelet Count 246 X 10*3/uL (140-440); RBC 4.17 X 10*6/uL (4.10-5.20); RDW 14.5 % (11.5-14.5); WBC 4.63 X 10*3/uL (4.50-10.00)
== END | disposition home or self-care (01) ==
LOC: LABPAT 14:08
PROVIDERS: ATTEND Orthopaedic Surgery
DX: Z01.812 Encounter for preprocedural laboratory examination (principal); M23.91 Unspecified internal derangement of right knee
CPT/HCPCS: 80051; 85025

== ENCOUNTER → 2023-04-24 | Day surgery (SDC) | payer BC, MEDICARE ==
--- NOTE | 2023-04-23 19:52 | HP ---
HISTORY AND PHYSICAL DATE OF SURGERY: 04/24/2023. HISTORY OF PRESENT ILLNESS: Cristine Pena is a 47-year-old patient who was seen with progressive right knee pain. Options were discussed. She elected to proceed with right knee arthroscopy. Consent was obtained. PAST MEDICAL HISTORY: Gastroesophageal reflux disease, hyperlipidemia, hypertension. SURGICAL HISTORY: section. Lap band surgery. DAILY MEDICATIONS: 1. Gabapentin. 2. Omeprazole. 3. Simvastatin. 4. Tylenol. 5. Lisinopril. ALLERGIES: Aspirin, ibuprofen. SOCIAL HISTORY: She denies tobacco use. PHYSICAL EVALUATION OF THE RIGHT KNEE: Range of motion is +3 to 130 degrees. Mild effusion. Tenderness, medial joint line. Positive medial Chandra's. Ligaments stable. Hip rotation without pain. Distal neurovascular exam is intact. IMAGING STUDIES: Radiographs obtained of the right knee revealed moderate osteoarthritis. MRI of right knee revealed medial meniscal tear and osteoarthritic changes. IMPRESSION: Internal derangement of right knee with medial meniscal tear. PLAN: Right knee arthroscopy with partial medial meniscectomy and debridement. MMODL / IJN: [id number] /
[~2023-04-24] MED LIST: BUPIVACAINE (PF) 0.25% 30 ML VIAL SQ ONE; DEXAMETHASONE SOD PHOSPHATE 4 MG/ML 1 ML VIAL IV ONE; LACTATED RINGERS 1,000 ML IV SCH; LIDOCAINE 1% (10MG/ML) FOR IV START INTRADERMA PRN; LIDOCAINE 1% INJ 10MG/ML (20 ML MDV) ONE; MIDAZOLAM 2 MG/2 ML VIAL IV PRN; MIDAZOLAM 2 MG/2 ML VIAL ONE; ONDANSETRON 4 MG/2 ML VIAL IVP ONE; PROPOFOL 10 MG/ML 20 ML VIAL IV ONE; SUCCINYLCHOLINE CHLORIDE 200 MG/10 ML VIAL IV ONE; fentaNYL (PF) 50 MCG/ML 2 ML AMP ONE
--- NOTE | 2023-04-24 10:54 | P.OP ---
Date of Procedure: 04/24/23 Preoperative Diagnosis: Internal derangement right knee Postoperative Diagnosis: 1. Tear medial and lateral meniscus right knee 2. Grade 4 chondromalacia femoral sulcus right knee 3. Reactive synovitis medial, lateral and patellar compartments right knee Procedure(s) Performed: 1. Arthroscopic partial medial and lateral meniscectomy right knee 2. Arthroscopic microfracture femoral sulcus right knee 3. Arthroscopic partial synovectomy medial, lateral and suprapatellar compartments right knee Anesthesia: NILDAA, local Surgeon: Juan Mccoy Estimated Blood Loss (ml): 7 Pathology: none sent Condition: stable Disposition: PACU Indications for Procedure: 47-year-old patient seen with progressive right knee pain. After having treatment options discussed, she elected to proceed with arthroscopy. Operative Findings: See description of procedure Description of Procedure: Patient was taken to the operative suite. Patient underwent a general anesthetic by the department of anesthesia. Patient was given preoperative antibiotics. The right lower extremity was placed in a well-padded arthroscopic leg dominique. The right leg was prepped and draped in the normal sterile orthopedic fashion. A lateral parapatellar and suprapatellar incision was made. Trochars were inserted. Arthroscopy was initiated. Suprapatellar pouch revealed diffuse thick reactive synovitis. The patellofemoral joint appeared to articulate congruently. There was grade 2 chondromalacia of the patella and grade 3/4 chondromalacia of the femoral sulcus.. The scope was guided into the medial gutter. No loose bodies or plica were identified. The scope was then guided into the medial compartment. A medial parapatellar incision was made. Trocar inserted followed by probe. Was a tear involving the posterior horn of the medial meniscus. There were grade 2 chondromalacia changes medial compartment with no tears. There was some thick reactive synovitis anteriorly. I performed a partial medial meniscectomy getting down to stable meniscal tissue. I performed a partial synovectomy decompressing the reactive synovitis. The residual meniscus was stable. There was good decompression of the synovitis. Scope and probe were then guided into the intercondylar notch. Cruciates were identified, probed and found to be stable. The scope and probe were then guided into lateral compartment. There was a radial tear mid body lat eral meniscus. There was thick reactive synovitis anteriorly. There were grade 1 chondromalacia changes of the lateral tibial plateau with no tears. I performed a partial lateral meniscectomy getting down to stable meniscal tissue. I performed a partial synovectomy decompressing the reactive synovitis. The residual meniscus was stable. There was good decompression of the synovitis. The scope was in guided back into the suprapatellar compartment. I introduced a motorized shaver into the suprapatellar compartment. I debrided some piecemeal fragments of meniscus that I encountered. I performed a partial synovectomy. I now performed a chondroplasty of the femoral sulcus getting down to stable osteochondral tissue. I did note an area of exposed bone along the medial femoral sulcus measuring about 1 cm in diameter. I introduced a microfracture awl and I performed a microfracture to the area of exposed bone penetrating the bone with resultant bleeding at the microfracture site. There was good decompression of synovitis. The residual osteochondral surface was stable. I took one more look around the entire knee, no residual debris. Instruments were now removed from the joint. The joint was infiltrated with .25% Marcaine. Steri-Strips were applied to the portal sites. Sterile dressings were applied. The patient was placed into a [facility] hose. No tourniquet was utilized. The patient was awakened, transferred to a bed and taken to recovery stable satisfactory condition.
[2023-04-24 11:05] VITALS: TEMP 98.2
[2023-04-24] MEDS: HYDROmorphone 0.5 MG/0.5 ML SYRINGE IVP PRN ×2 (11:07→11:23)
[2023-04-24 12:48] VITALS: RESP 16
[2023-04-24 13:14] VITALS: BP 136/83; PULSE 79
== END ==
LOC: OR 08:48
PROVIDERS: ATTEND Orthopaedic Surgery
DX: S83.241A Other tear of medial meniscus, current injury, right knee, initial encounter (principal); S83.281A Other tear of lateral meniscus, current injury, right knee, initial encounter; M22.41 Chondromalacia patellae, right knee; M65.161 Other infective (teno)synovitis, right knee; K21.9 Gastro-esophageal reflux disease without esophagitis; I10 Essential (primary) hypertension; E78.5 Hyperlipidemia, unspecified; Z88.6 Allergy status to analgesic agent; Z79.899 Other long term (current) drug therapy; X58.XXXA Exposure to other specified factors, initial encounter
CPT/HCPCS: 29880; 29879; J2250; J0330; J1100; J0690; J2405; J2001; J3010; J2704; J1170; J0665

== ENCOUNTER → 2023-06-10 | Outpatient (CLI) | payer BC, MEDICARE ==
[2023-06-10 18:38] LABS: Basophils # (A) 0.04 X 10*3/uL (0.00-0.10); Basophils % (A) 0.7 %; Eosinophils # (A) 0.21 X 10*3/uL (0.04-0.35); Eosinophils % (A) 3.7 %; HCT 39.7 % (37.2-46.3); HGB 12.5 g/dL (12.0-15.0); Lymphocytes # (A) 1.84 X 10*3/uL (0.90-5.00); Lymphocytes % (A) 32.7 %; MCH 29.1 pg (27.0-32.0); MCHC 31.5 g/dL (32.0-37.0); MCV 92.5 FL (80.0-97.0); Mean Platelet Volume 10.8 FL (9.5-12.2); Monocytes # (A) 0.35 X 10*3/uL (0.20-1.00); Monocytes % (A) 6.2 %; NRBC Per 100 WBC 0 X 10*3/uL (0.00-0.01); Neutrophils # (A) 3.17 X 10*3/uL (1.80-7.70); Neutrophils % (A) 56.5 %; Platelet Count 291 X 10*3/uL (140-440); RBC 4.29 X 10*6/uL (4.10-5.20); RDW 14.8 % (11.5-14.5); WBC 5.62 X 10*3/uL (4.50-10.00)
[2023-06-10 20:29] LABS: % Iron Saturation 11.75 (12.00-45.00); ALT 21 U/L (8-44); AST 19 U/L (13-35); Albumin 4.1 g/dL (3.8-4.9); Albumin/Globulin Ratio 1.58 Ratio (1.60-3.17); Alkaline Phosphatase 87 U/L (41-126); Blood Urea Nitrogen 12.6 mg/dL (9.0-27.0); Carbon Dioxide 25.5 mmol/L (21.6-31.8); Chloride 105 mmol/L (96-109); Chol/HDL Ratio 2.25 Ratio; Creatine Kinase 68 U/L (26-186); Globulin 2.6 g/dL (1.6-3.3); Glucose 86 mg/dL (70-110); Iron 55 UG/DL (50-170); LDL Cholesterol,Calculated 86.9 mg/dL (0.0-131.0); Magnesium 2.4 mg/dL (1.5-2.4); Potassium 4.3 mmol/L (3.5-5.5); Sodium 141 mmol/L (135-145); T4, Free (Free Thyroxine) 1.12 ng/dL (0.80-1.80); Total Bilirubin 0.3 mg/dL (0.3-1.2); Total Iron Binding Capacity 468 UG/DL (228-460); Total Protein 6.7 g/dL (6.2-8.2)
[2023-06-12 08:02] LABS: Vitamin A 57 ug/dL (38-106)
[2023-06-12 08:19] LABS: Vit B1(Thiamine) 76 ug/L (38-122)
== END | disposition home or self-care (01) ==
LOC: LABWHC1 12:31
PROVIDERS: ATTEND Family Medicine
DX: Z00.01 Encounter for general adult medical examination with abnormal findings (principal); I10 Essential (primary) hypertension; M79.7 Fibromyalgia; E61.1 Iron deficiency; E78.2 Mixed hyperlipidemia; E04.1 Nontoxic single thyroid nodule; E50.9 Vitamin A deficiency, unspecified; E51.9 Thiamine deficiency, unspecified; E53.8 Deficiency of other specified B group vitamins; R25.3 Fasciculation; R73.9 Hyperglycemia, unspecified; E55.9 Vitamin D deficiency, unspecified; Z98.84 Bariatric surgery status
CPT/HCPCS: 36415; 80053; 80061; 82306; 82550; 82607; 83036; 83540; 83550; 83735; 84255; 84425; 84439; 84443; 84590; 85025

== ENCOUNTER 2023-07-19 06:31 | Day surgery (SDC) | payer BC, MEDICARE ==
[2023-07-17 12:14] VITALS: BMI 39.6
[2023-07-19] MEDS ORDERED: LIDOCAINE 1% (10MG/ML) FOR IV START INTRADERMA PRN (06:36)
[2023-07-19] MEDS ORDERED: ONDANSETRON 4 MG/2 ML VIAL ONE (07:10)
[2023-07-19] MEDS: LACTATED RINGERS 1,000 ML IV SCH (07:12)
[2023-07-19] MEDS ORDERED: LIDOCAINE 1% INJ 10MG/ML (20 ML MDV) ONE (07:27)
[2023-07-19] MEDS ORDERED: fentaNYL (PF) 50 MCG/ML 2 ML AMP ONE (07:27)
[2023-07-19] MEDS ORDERED: MIDAZOLAM 2 MG/2 ML VIAL ONE (07:27)
[2023-07-19] MEDS ORDERED: PROPOFOL 10 MG/ML 20 ML VIAL IV ONE (07:27)
--- NOTE | 2023-07-19 07:53 | P.PCN ---
Date of Procedure: 07/19/23 Procedure(s) Performed: Brief history: Patient is a pleasant 48-year-old white female scheduled for an elective upper endoscopy as well as colonoscopy as a part of evaluation of reflux and history of GERD and screening for colon cancer. She is presently on omeprazole 40 mg daily and still has breakthrough symptoms at least 3-4 times a week. She reports no dysphagia or odynophagia. Procedure performed: Esophagogastroduodenoscopy with biopsy Colonoscopy Preoperative diagnosis: history of GERD Screening for colon cancer ALongnesthesia: MAC Procedure: After informed consent was obtained from the patient was brought into the endoscopy unit and IV sedation was administered by anesthesia under continuous monitoring. Initially upper endoscopy was done. The Olympus GF 160 video endoscope was inserted inserted into the mouth and esophagus intubated without any difficulty and was gradually advanced into the stomach and duodenum and carefully examined. The bulb and second part of the duodenum appeared normal. Along the duodenal there was a 5 limited duodenal polyp that was biopsied. The scope was then withdrawn into the stomach adequately insufflated with air and upon careful examination the antrum had mild gastritis and biopsies were done from this area. Evidence of gastric sleeve surgery noted. Mucosa of the gastric sleeve appeared normal. The scope was then withdrawn into the esophagus. Small to moderate size hiatal hernia noted. The GE junction was located at 33 cm to the incisors. It appeared regular with 2 superficial erosions consistent with LA grade B reflux esophagitis.. Rest of the esophagus appeared normal. Patient tolerated the procedure well. At this time the patient continued to remain sedation. Initial digital rectal examination was normal. Olympus CF 160 video colonoscope was then inserted into the rectum and gradually advanced to the cecum without any difficulty. Careful examination was performed as the scope was gradually being withdrawn. The prep was excellent. The cecum, ascending colon, transverse colon, descending colon, sigmoid colon and rectum appeared normal. Retroflexion was performed in the rectum and no lesions were noted. Patient tolerated the procedure well. Impression: 1. Upper endoscopy revealed small hiatal hernia, LA grade B reflux esophagitis, mild antral gastritis and small duodenal polyp 2. Coloscopy was within normal limits with no runs of colorectal neoplasia Recommendations: Findings of this examination were discussed with the patient as well as her family. She was advised to increase omeprazole to 40 mg twice daily and follow antireflux measures. Follow with the biopsy results. Recommend repeat screening colonoscopy in 10 years.
[2023-07-19 08:20] VITALS: BP 124/83; PULSE 88; RESP 18
== END 2023-07-19 08:32 | disposition home or self-care (01) ==
LOC: ORWHC2ENDO 06:31
PROVIDERS: ATTEND Internal Medicine Gastroenterology
DX: Z12.11 Encounter for screening for malignant neoplasm of colon (principal); K29.50 Unspecified chronic gastritis without bleeding; K31.7 Polyp of stomach and duodenum; K21.00 Gastro-esophageal reflux disease with esophagitis, without bleeding; K31.89 Other diseases of stomach and duodenum; K44.9 Diaphragmatic hernia without obstruction or gangrene; J45.909 Unspecified asthma, uncomplicated; M79.7 Fibromyalgia; G43.909 Migraine, unspecified, not intractable, without status migrainosus; F41.9 Anxiety disorder, unspecified; F32.A Depression, unspecified; Z90.49 Acquired absence of other specified parts of digestive tract; Z87.891 Personal history of nicotine dependence; Z79.899 Other long term (current) drug therapy
CPT/HCPCS: 88305; 45378; 43239; J2250; J2001; J3010; J2704

== ENCOUNTER → 2024-02-06 | Outpatient (CLI) | payer BC, MEDICARE ==
--- NOTE | 2024-02-07 08:10 | MM ---
Reason for Exam: Screening (asymptomatic). Last mammogram was performed 1 year(s) and 7 month(s) ago. Patient History: Menarche at age 10. First Full-Term at age 24. Hormonal Contraceptives for 1 month. 11/04/2017, Benign Core Biopsy on the left side. Risk Values: Ladonna 5 year model risk: 1.3%. NCI Lifetime model risk: 11.6%. Prior Study Comparison: 07/14/2020 Bilateral MG 3D screening mammo w/cad, [facility]. 08/10/2021 Bilateral MG 3D screening mammo w/cad, [facility]. 06/20/2022 Bilateral MG 3D screening mammo w/cad, [facility]. Tissue Density: There are scattered areas of fibroglandular density. Findings: Analyzed By CAD. There is no suspicious group of microcalcifications or new suspicious mass in either breast. Stable surgical clip left breast. Overall Assessment: Benign, BI-RAD 2 Management: Screening Mammogram of both breasts in 1 year. . Patient should continue monthly self-breast exams. A clinical breast exam by your physician is recommended on an annual basis. This exam should not preclude additional follow-up of suspicious palpable abnormalities. Note on Ladonna scores and lifetime risk: 1. A Ladonna score greater than 3% is considered moderate risk. If this is the case, consider specialist referral to assess eligibility for a risk reducing agent. 2. If overall lifetime risk for the development of breast cancer is 20% or higher, the patient may qualify for future screening with alternating mammogram and breast MRI. [facility], , 02/07/2024 8:07 AM. Electronically signed and approved by: Arnaldo Nieto M.D. Radiologis
== END | disposition home or self-care (01) ==
LOC: RADMAMWWP 15:28
PROVIDERS: ATTEND Family Medicine
DX: Z12.31 Encounter for screening mammogram for malignant neoplasm of breast
CPT/HCPCS: 77063; 77067

== ENCOUNTER → 2024-09-17 | Day surgery (SDC) | payer BC, MEDICARE ==
[~2024-09-17] MED LIST changes: +ALPRAZolam 0.25 MG TAB PO PRN; +ALPRAZolam 0.5 MG TAB PO PRN; +ATORVASTATIN 80 MG TAB PO ONE; -BUPIVACAINE (PF) 0.25% 30 ML VIAL SQ ONE; -DEXAMETHASONE SOD PHOSPHATE 4 MG/ML 1 ML VIAL IV ONE; -LACTATED RINGERS 1,000 ML IV SCH; -LIDOCAINE 1% (10MG/ML) FOR IV START INTRADERMA PRN; -LIDOCAINE 1% INJ 10MG/ML (20 ML MDV) ONE; -MIDAZOLAM 2 MG/2 ML VIAL IV PRN; -MIDAZOLAM 2 MG/2 ML VIAL ONE; +NITROGLYCERIN SL TABS 0.4 MG TAB SUBLINGUAL PRN; -ONDANSETRON 4 MG/2 ML VIAL IVP ONE; -PROPOFOL 10 MG/ML 20 ML VIAL IV ONE; +RX INFO: IV CONTRAST WAS GIVEN 1 EACH MISC MISCELLANE PRN; +SODIUM CHLORIDE 0.9% 1,000 ML IV SCH; -SUCCINYLCHOLINE CHLORIDE 200 MG/10 ML VIAL IV ONE; -fentaNYL (PF) 50 MCG/ML 2 ML AMP ONE
[2024-09-17] MEDS: IV FLUID CONTINUATION 1,000 ML IV ONE (10:23)
[2024-09-17] MEDS: SODIUM CHLORIDE 0.9% 1,000 ML in EMPTY BAG 1 BAG IV SCH (10:30)
[2024-09-17 10:41] LABS: Basophils # (A) 0.02 10*3/uL (0.00-0.10); Basophils % (A) 0.4 %; Eosinophils # (A) 0.22 10*3/uL (0.04-0.35); Eosinophils % (A) 4.5 %; HCT 36.9 % (37.2-46.3); HGB 12.3 g/dL (12.0-15.0); Lymphocytes # (A) 1.64 10*3/uL (0.90-5.00); Lymphocytes % (A) 33.2 %; MCH 29.9 pg (27.0-32.0); MCHC 33.3 g/dL (32.0-37.0); MCV 89.6 fL (80.0-97.0); Mean Platelet Volume 10.5 fL (9.5-12.2); Monocytes # (A) 0.39 10*3/uL (0.20-1.00); Monocytes % (A) 7.9 %; Neutrophils # (A) 2.65 10*3/uL (1.80-7.70); Neutrophils % (A) 53.6 %; Platelet Count 282 10*3/uL (140-440); RBC 4.12 10*6/uL (4.10-5.20); RDW 14.9 % (11.5-14.5); WBC 4.94 10*3/uL (4.50-10.00)
[2024-09-17] MEDS: ASPIRIN 325 MG TAB PO ONE (10:41)
[2024-09-17 10:43] VITALS: TEMP 98.2
[2024-09-17 11:10] LABS: African American GFR (CKD) 87 (>60 ml/min/1.73 sqM); Anion Gap 7 mmol/L; Blood Urea Nitrogen 16 mg/dL (7-17); Calcium 9.2 mg/dL (8.4-10.2); Carbon Dioxide 26 mmol/L (22-30); Chloride 106 mmol/L (98-107); Glucose 94 mg/dL (74-99); Non-African American GFR(CKD) 75 (>60 ml/min/1.73 sqM); Potassium 4.3 mmol/L (3.5-5.1); Sodium 139 mmol/L (137-145)
[2024-09-17] MEDS: HEPARIN SODIUM,PORCINE (1 ML) 2,500 UNIT in SODIUM CHLORIDE 0.9% 250 ML IRRIGATION PRN (12:07)
[2024-09-17] MEDS: HEPARIN SODIUM,PORCINE 10,000 UNIT in SODIUM CHLORIDE 0.9% 1,000 ML IRRIGATION PRN (12:07)
[2024-09-17] MEDS: fentaNYL (PF) 50 MCG/ML 2 ML AMP IVP ONE (12:22)
[2024-09-17] MEDS: MIDAZOLAM 2 MG/2 ML VIAL IVP ONE (12:22)
[2024-09-17] MEDS: LIDOCAINE 1% INJ 10MG/ML (20 ML MDV) SQ ONE (12:29)
[2024-09-17] MEDS: VERAPAMIL SYRINGE (5 MG/10 ML) INTRAARTER ONE (12:30)
[2024-09-17] MEDS: HEPARIN SODIUM 1,000 UN/ML (10ML VL) IV ONE (12:35)
[2024-09-17] MEDS: IOPAMIDOL-370 100ML BTL INJ ONE (12:49)
--- NOTE | 2024-09-17 13:36 | P.CARDCATH ---
Date of Procedure: 09/17/24 Description of Procedure: DIAGNOSTIC CORONARY ANGIOGRAPHY and LEFT HEART CATH REPORT PROCEDURES PERFORMED: Left heart catheterization Selective coronary angiography Moderate conscious sedation [25] mins [Ultrasound assisted] Right radial access INDICATION: Abnormal stress test showing apical wall ischemia CONSENT: I have explained the procedural steps of above-mentioned procedures in layman's terms to the patient. I discussed the risks (including but not limited to stroke, emergent vascular or cardiac surgery or ), benefits and alternative therapies for the above-mentioned procedure. I discussed the risks of sedation/analgesia and blood product administration (if indicated). The patient has indicated understanding and acceptance of these risks. Conscious Sedation: Patient's ECG, heart rate, blood pressure, pulse oximetry were monitored throughout the duration of procedure under my direct supervision. [2] mg Versed and [50] mcg Fentanyl were used for induction of moderate conscious sedation. Total duration of moderate concious sedation [25] minutes. PROCEDURAL DETAILS: Patient was prepped and draped in sterile fashion. 1% lidocaine was infiltrated over the right radial artery. Right radial access was obtained via modified seldinger technique. [Ultrasound was used for radial access]. Medications: 5mg of verapamil was administed in the radial sheet. 6000 Units of Heparin was administed once the catheter reached the aortic root Wires and Catheter used: J wire was advanced under fluroscopy to get to aortic root. 5 qatari JR 4 diagnostic catheter was utilized obtain left ventricular pressure and pressure gradint across aortic valve. 5 qatari JR 4 diagnostic catheter was used to selectively engage the right coronary ostium. 5 qatari JL 3.5 diagnostic catheter was utilized to selectively engage the left coronary ostium. Angiographic images were reviewed in detail. Catheter and wire were removed. Radial sheet was flushed. The right radial sheath was removed and a TR band was placed. Patent hemostasis was achieved. The patient tolerated the procedure well. Patient was transported back to the post catheterization holding area in stable condition. TECHNICAL DETAILS Total contrast used: Isovue [60 ml] Complications: [none] Estimated Blood loss: less than 15 ml HEMODYNAMICS: Aortic Pressure: 110/70 mmHg. LV pressure: 112/5 mmHg. LVEDP 10 mmHg. There was no significant gradient across the aortic valve. SELECTIVE CORONARY ARTERIOGRAPHY: LEFT MAIN: Essentially nonexistent, LAD and LCx arises from separate ostia. LEFT ANTERIOR DESCENDING CORONARY ARTERY: LAD is a large caliber vessel which wraps around to the apex. Proximal mid and distal LAD appears angiographically patent. It gives rise to small diagonal branches which appears angiographically patent. LEFT CIRCUMFLEX CORONARY ARTERY: Codominant vessel and is large caliber. LCx is angiographically patent. It gives rise to a large OM1 branch in proximal segment and distally it gives PL branches. They appear angiographically patent. RIGHT CORONARY ARTERY: Codominant, moderate caliber, appears angiographically patent. Distally it gives a small PDA branch which is appears angiographically patent. IMPRESSION: Angiographically patent coronary arteries Normal LVEDP PLAN: Aggressive risk factor modification per most recent ACC/AHA guidelines. 125 cc fluids for 4 hours Discharge home in 4 hours Follow-up in the office in 1-2 weeks. Performing Physician Atilio Mcneill MD, FACC, RPVI Thank you for allowing [facility] to participate in this patient's care. Feel free to reach out in case of any followup questions.
[2024-09-17 17:02] VITALS: BP 110/58; PULSE 72; RESP 14
== END ==
LOC: CATHCVL 10:08
PROVIDERS: ATTEND Student in an Organized Health Care Education/Training Program
DX: R94.39 Abnormal result of other cardiovascular function study (principal); R07.89 Other chest pain; I10 Essential (primary) hypertension; E78.5 Hyperlipidemia, unspecified; Z79.02 Long term (current) use of antithrombotics/antiplatelets; Z79.899 Other long term (current) drug therapy; Z88.6 Allergy status to analgesic agent; Z82.49 Family history of ischemic heart disease and other diseases of the circulatory system
CPT/HCPCS: 93458; 80048; 85025; C1894; C1769; J2250; J1644 ×3; J2003; J3010; Q9967

== ENCOUNTER → 2024-10-14 | Outpatient (CLI) | payer BC, MEDICARE ==
[2024-10-14 14:37] VITALS: BP 119/87; PULSE 92; RESP 16; TEMP 98.6
--- NOTE | 2024-10-14 14:55 | P.HPBAR ---
Bariatric H&P - History & Physicial H&P Date: 10/14/24 History & Physicial: Visit/CC: new pt Patient initial contact: Initial weight: 101.718 kg Initial weight in pounds: 224.25 Height: 5 ft 3 in Initial BMI: 39.7 Last weight: Current weight: 101.718 kg Current weight in pounds: Current BMI: [place] body weight (based on NIH guidelines): 52.27 kg Excess body weight loss: The patient is a 49 year-old F who presents for Bariatric Assessment. She comes in with request for weight loss. Highest 285.5 pounds. Tried Weight watchers, sleeve, anti-inflammatory and has not lost weight. Lowest sleeve 140 pounds. Needs labs. Dysphagia regularly in the chest with pressure. Hit and miss. Heartburn. Esophagogram. Wants bypass. Diet is 50 grams barely daily. Past Medical History Past Medical History: Asthma, Chest Pain / Angina, CVA/TIA, Fibromyalgia, GERD/Reflux, Hyperlipidemia, Hypertension, Musculoskeletal Disorder Additional Past Medical History / Comment(s): Migraines, Autoimmune Disease - Psoriatic Arthritis. hx TIA 2021. hx chest pain end of July 2024- stayed one night [facility]. hx cramp fasciculation syndrome-muscle cramps & twitching- uses walker as needed. History of Any Multi-Drug Resistant Organisms: None Reported Past Surgical History: Bariatric Surgery, Section, Cholecystectomy, Orthopedic Surgery Additional Past Surgical History / Comment(s): LAP BAND 2008, GASTRIC SLEEVE 2013, LYMPH NODE REMOVAL (ENLARGED) X2 bilateral neck 1997, right knee surgery. Past Anesthesia/Blood Transfusion Reactions: No Reported Reaction Past Psychological History: Anxiety, Depression Smoking Status: Former smoker Past Alcohol Use History: None Reported Additional Past Alcohol Use History / Comment(s): Quit smoking 10 yrs ago. Past Drug Use History: None Reported - Past Family History Mother Family Medical History: Cancer, Fibromyalgia, Osteoarthritis (OA) Additional Family Medical History / Comment(s): Lung cancer. Father Family Medical History: CVA/TIA, Osteoarthritis (OA) Additional Family Medical History / Comment(s): UNKNOWN HEART ISSUE. TIA X2. Surgical - Exam Vital Signs Temp Pulse Resp BP 98.6 F 92 16 119/87 10/14/24 14:28 10/14/24 14:28 10/14/24 14:28 10/14/24 14:28 Bariatric Checklist Checklist: Plan: Checklist: EGD: 1. Hiatal hernia: 2. H. Pylori: HgbA1c: Vitamin D: Smoking: Current every day smoker Primary care physician referral: Dr. Lino Psychiatry clearance: Cardiology clearance: Sleep study: Diet journal: VTE risk score: VTE risk level: Rehab needs at discharge:
[2024-10-14 16:05] LABS: INR 0.9 (<1.2); Partial Thromboplastin Time 23.2 sec (22.0-30.0); Prothrombin Time 10.2 sec (10.0-12.5)
[2024-10-14 18:17] LABS: HCT 39.7 % (37.2-46.3); HGB 12.5 g/dL (12.0-15.0); MCH 29.4 pg (27.0-32.0); MCHC 31.5 g/dL (32.0-37.0); MCV 93.4 FL (80.0-97.0); Mean Platelet Volume 11.2 FL (9.5-12.2); NRBC Per 100 WBC 0 X 10*3/uL (0.00-0.01); Platelet Count 297 X 10*3/uL (140-440); RBC 4.25 X 10*6/uL (4.10-5.20); RDW 15.6 % (11.5-14.5); WBC 5.89 X 10*3/uL (4.50-10.00)
[2024-10-14 19:15] LABS: ALT 25 U/L (8-44); AST 23 U/L (13-35); Albumin 4.2 g/dL (3.8-4.9); Albumin/Globulin Ratio 1.45 Ratio (1.60-3.17); Alkaline Phosphatase 88 U/L (41-126); Blood Urea Nitrogen 16.4 mg/dL (9.0-27.0); Calcium 9.3 mg/dL (8.7-10.3); Carbon Dioxide 24.3 mmol/L (21.6-31.8); Chloride 104 mmol/L (96-109); Chol/HDL Ratio 2.32 Ratio; Globulin 2.9 g/dL (1.6-3.3); Glucose 97 mg/dL (70-110); Iron 103 UG/DL (50-170); LDL Cholesterol,Calculated 77.3 mg/dL (0.0-131.0); Magnesium 2.3 mg/dL (1.5-2.4); Phosphorus 3.8 mg/dL (2.4-5.1); Sodium 140 mmol/L (135-145); Total Bilirubin 0.2 mg/dL (0.3-1.2); Total Iron Binding Capacity 479 UG/DL (228-460); Total Protein 7.1 g/dL (6.2-8.2)
[2024-10-14 19:16] LABS: Ferritin 15.2 ng/mL (10.0-291.0)
[2024-10-14 23:10] LABS: Prealbumin 22.3 mg/dL (18.0-42.0)
[2024-10-15 12:32] LABS: Zinc, Serum 63 ug/dL (60-130)
[2024-10-16 07:03] LABS: Anabasine Urine <2.0 ng/mL (<2.0)
[2024-10-16 07:43] LABS: Vitamin A 59 ug/dL (38-106)
[2024-10-16 22:58] LABS: Selenium 180 mcg/L (63-160)
[2024-10-19 13:16] LABS: Vit B1(Thiamine) 105 ug/L (38-122)
== END ==
LOC: BARWHC3 14:11
PROVIDERS: ATTEND Surgery Plastic and Reconstructive Surgery
DX: E66.01 Morbid (severe) obesity due to excess calories (principal); D50.8 Other iron deficiency anemias; K91.2 Postsurgical malabsorption, not elsewhere classified; E44.0 Moderate protein-calorie malnutrition; E45 Retarded development following protein-calorie malnutrition; E55.9 Vitamin D deficiency, unspecified; K74.1 Hepatic sclerosis; N19 Unspecified kidney failure; T56.894A Toxic effect of other metals, undetermined, initial encounter; K50.90 Crohn's disease, unspecified, without complications; F17.200 Nicotine dependence, unspecified, uncomplicated; Z68.41 Body mass index [BMI] 40.0-44.9, adult; Z91.048 Other nonmedicinal substance allergy status; Z88.6 Allergy status to analgesic agent; Z88.8 Allergy status to other drugs, medicaments and biological substances
CPT/HCPCS: 80053; 80061; 80307; 80323; 82306; 82525; 82607; 82728; 82746; 83036; 83540; 83550; 83735; 83970; 84100; 84134; 84255; 84425; 84443; 84590; 84630; 85027; 85610; 85730; 93005; 99212

== ENCOUNTER → 2024-11-02 | Outpatient (CLI) | payer BC, MEDICARE ==
--- NOTE | 2024-11-02 15:52 | FL ---
EXAMINATION TYPE: FL barium swallow DATE OF EXAM: 11/02/2024 2:30 PM COMPARISON: 09/18/2021. CLINICAL INDICATION:Female, 49 years old with history of R13.10 DYSPHAGIA; TECHNIQUE: The procedure was explained and patient history elicited. All patient questions were answe red prior to start of procedure. Multiple spot fluoroscopic images of the esophagus were obtained aft er the oral ingestion of liquid barium as the contrast agent. DAP: NOT REPORTED mGym2 FINDINGS: Postsurgical contour to the stomach. There was delayed emptying of barium with moderate reflux identi fied. No extravasation of contrast identified. There is appropriate primary and secondary peristalsis . Hiatal hernia was not definitively visualized. IMPRESSION: Moderate delayed emptying with esophageal dysmotility and moderate gastrointestinal reflux. [facility], , 11/02/2024 3:50 PM
== END | disposition home or self-care (01) ==
LOC: RADFLMAIN 13:45
PROVIDERS: ATTEND Surgery Plastic and Reconstructive Surgery
DX: K21.9 Gastro-esophageal reflux disease without esophagitis (principal); K22.4 Dyskinesia of esophagus
CPT/HCPCS: 74220

== ENCOUNTER 2024-11-09 08:57 | Day surgery (SDC) | payer BC, MEDICARE ==
[2024-11-09] MEDS: IV FLUID CONTINUATION 1,000 ML IV ONE (09:08)
[2024-11-09 09:10] VITALS: RESP 16; TEMP 98
[2024-11-09] MEDS: LACTATED RINGERS 1,000 ML BAG IV STA (09:14)
[2024-11-09] MEDS ORDERED: LIDOCAINE 1% INJ 10MG/ML (20 ML MDV) ONE (09:46)
[2024-11-09] MEDS ORDERED: PROPOFOL 10 MG/ML 20 ML VIAL IV ONE (09:46)
--- NOTE | 2024-11-09 10:05 | P.PCN ---
Date of Procedure: 11/09/24 Description of Procedure: PREOPERATIVE DIAGNOSIS: Gastroesophageal reflux disease. Dysphagia Epigastric abdominal pain. POSTOPERATIVE DIAGNOSIS: Status post sleeve gastrectomy. Gastroesophageal reflux disease. Diaphragmatic hiatal hernia without obstruction. Chronic superficial gastritis. OPERATION: Esophagogastroduodenoscopy with cold forceps biopsies along the antrum, duodenum, esophagus. SURGEON: Ruba Lizarraga MD ANESTHESIA: MAC. INDICATIONS: The patient is a 49-year-old female who presents with a history of sleeve gastrectomy with abdominal pain. She is over 5 years out from her bariatric procedure. Benefits and risks of the procedure were described. Informed consent was obtained. DESCRIPTION: The patient was brought into the endoscopy suite and laid in the left lateral decubitus position. An Olympus gastroscope was passed along the posterior oropharynx down to the distal esophagus where the squamocolumnar junction was at 37 centimeters from the incisors remarkable for chronic erosive esophagitis, LA grade A without ulceration. The stomach was entered where she had a 3-cm hiatal hernia with a diaphragmatic hiatus found at 40 cm. Chronic gastritis albeit mild was found along the antrum with cold biopsies obtained. The first through third portion of the duodenum was examined with biopsies obtained. The stomach was desufflated. The patient tolerated the procedure well. FINDINGS: No acute ulceration found along her sleeve. Corkscrewing of sleeve gastrectomy Squamocolumnar junction at 37 cm from the incisors. Diaphragmatic hiatus at 40 cm. Stomach reservoir within normal limits Hiatal hernia 3 cm, fixed. LA grade A erosive esophagitis, biopsies obtained Biopsies obtained of duodenum Chronic gastritis., Biopsies obtained RECOMMENDATIONS: May benefit from antireflux operation. Continue with omeprazole Plan - Discharge Summary New Discharge Prescriptions: Continue busPIRone HCL 10 mg PO TID Albuterol Sulfate [Albuterol Sulfate Hfa] 2 puff INHALATION RT-Q6H PRN PRN Reason: Shortness Of Breath Folic Acid 1 mg PO HS Simvastatin [Zocor] 40 mg PO HS Amitriptyline HCl 50 mg PO HS Rizatriptan Benzoate [Maxalt] 10 mg PO DAILY PRN PRN Reason: migraines Losartan Potassium 50 mg PO HS Cyanocobalamin (Vitamin B-12) [Vitamin B-12] 1 tab PO DAILY Baclofen [Lioresal] 10 mg PO QID Meclizine [Antivert] 25 mg PO TID PRN PRN Reason: Vertigo Citalopram Hydrobromide [CeleXA] 40 mg PO HS Vit No.179/Iron/Folic [ Tablet] 1 each PO DAILY Omeprazole 40 mg PO DAILY Discharge Medication List busPIRone HCL 10 mg PO TID 10/24/17 [History] Albuterol Sulfate [Albuterol Sulfate Hfa] 2 puff INHALATION RT-Q6H PRN 09/18/21 [History] Baclofen [Lioresal] 10 mg PO QID 09/18/21 [History] Citalopram Hydrobromide [CeleXA] 40 mg PO HS 09/18/21 [History] Folic Acid 1 mg PO HS 09/18/21 [History] Meclizine [Antivert] 25 mg PO TID PRN 09/18/21 [History] Simvastatin [Zocor] 40 mg PO HS 09/18/21 [History] Amitriptyline HCl 50 mg PO HS 07/17/23 [History] Losartan Potassium 50 mg PO HS 09/15/24 [History] Omeprazole 40 mg PO DAILY 09/15/24 [History] Vit No.179/Iron/Folic [ Tablet] 1 each PO DAILY 09/15/24 [History] Rizatriptan Benzoate [Maxalt] 10 mg PO DAILY PRN 09/15/24 [History] Cyanocobalamin (Vitamin B-12) [Vitamin B-12] 1 tab PO DAILY 10/14/24 [History] [facility]Ref[facility] [place] [facility]25[facility] 3:00 pm Patient Instructions/Handouts: Hiatal Hernia (DC) Discharge Disposition: HOME SELF-CARE
--- NOTE | 2024-11-09 10:05 | P.GSHP ---
History of Present Illness H&P Date: 11/09/24 CHIEF COMPLAINT: GERD and dysphagia HISTORY OF PRESENT ILLNESS: The patient is a 49-year-old female who presents reports gastroesophageal reflux disease and dysphagia. Upper endoscopy was offered for further evaluation and management. PAST MEDICAL HISTORY: Please see list. PAST SURGICAL HISTORY: Please see list. MEDICATIONS: Please see list. ALLERGIES: Please see list. SOCIAL HISTORY: No illicit drug use FAMILY HISTORY: No reports of Crohn disease or ulcerative colitis. REVIEW OF ORGAN SYSTEMS: CONSTITUTIONAL: No reports of fevers or chills. GI: Denies any blood in stools or constipation. PHYSICAL EXAM: VITAL SIGNS: Stable GENERAL: Well-developed and pleasant in no acute distress. HEENT: No scleral icterus. Extraocular movements grossly intact. Moist buccal mucosa. NECK: Supple without lymphadenopathy. CHEST: Unlabored respirations. Equal bilateral excursions. CARDIOVASCULAR: Regular rate and rhythm. Distal 2+ pulses. ABDOMEN: Soft, nondistended. MUSCULOSKELETAL: No clubbing, cyanosis, or edema. ASSESSMENT: 1. Gastroesophageal reflux disease 2. Dysphagia PLAN: 1. Recommend proceeding with an upper endoscopy Past Medical History Past Medical History: Asthma, Chest Pain / Angina, CVA/TIA, Fibromyalgia, G ERD/Reflux, Hyperlipidemia, Hypertension, Musculoskeletal Disorder Additional Past Medical History / Comment(s): Migraines, Autoimmune Disease - Psoriatic Arthritis. hx TIA 2021. hx chest pain end of July 2024- stayed one night @[facility]. hx cramp fasciculation syndrome-muscle cramps & twitching- uses walker as needed. History of Any Multi-Drug Resistant Organisms: None Reported Past Surgical History: Bariatric Surgery, Section, Cholecystectomy, Orthopedic Surgery Additional Past Surgical History / Comment(s): LAP BAND 2008, GASTRIC SLEEVE 2013, LYMPH NODE REMOVAL (ENLARGED) X2 bilateral neck 1997, right knee surgery. Past Anesthesia/Blood Transfusion Reactions: No Reported Reaction Past Psychological History: Anxiety, Depression Smoking Status: Former smoker Past Alcohol Use History: None Reported Additional Past Alcohol Use History / Comment(s): Quit smoking 10 yrs ago. Past Drug Use History: None Reported - Past Family History Mother Family Medical History: Cancer, Fibromyalgia, Osteoarthritis (OA) Additional Family Medical History / Comment(s): Lung cancer. Father Family Medical History: CVA/TIA, Osteoarthritis (OA) Additional Family Medical History / Comment(s): UNKNOWN HEART ISSUE. TIA X2. Medications and Allergies Home Medications Medication Instructions Recorded Confirmed Type busPIRone HCL 10 mg PO TID 10/24/17 11/09/24 History Albuterol Sulfate [Albuterol 2 puff INHALATION RT-Q6H PRN 09/18/21 11/09/24 History Sulfate Hfa] Baclofen [Lioresal] 10 mg PO QID 09/18/21 11/09/24 History Citalopram Hydrobromide [CeleXA] 40 mg PO HS 09/18/21 11/09/24 History Folic Acid 1 mg PO HS 09/18/21 11/09/24 History Meclizine [Antivert] 25 mg PO TID PRN 09/18/21 11/09/24 History Simvastatin [Zocor] 40 mg PO HS 09/18/21 11/09/24 History Amitriptyline HCl 50 mg PO HS 07/17/23 11/09/24 History Losartan Potassium 50 mg PO HS 09/15/24 11/09/24 History Omeprazole 40 mg PO DAILY 09/15/24 11/09/24 History Vit No.179/Iron/Folic 1 each PO DAILY 09/15/24 11/09/24 History [ Tablet] Rizatriptan Benzoate [Maxalt] 10 mg PO DAILY PRN 09/15/24 11/09/24 History Cyanocobalamin (Vitamin B-12) 1 tab PO DAILY 10/14/24 11/09/24 History [Vitamin B-12] Allergies Allergy/AdvReac Type Severity Reaction Status Date / Time adhesive Allergy Itching, Verified 11/09/24 09:12 red skin aspirin Allergy Dyspnea Verified 11/09/24 09:12 ibuprofen AdvReac Mild Chest Pain Verified 11/09/24 09:12 NSAIDS (Non-Steroidal AdvReac Chest Pain Verified 11/09/24 09:12 Anti-Inflamma prochlorperazine AdvReac Hallucinati Verified 11/09/24 09:12 [From Compazine] ons Surgical - Exam Vital Signs Temp Pulse Resp BP Pulse Ox 98.0 F 79 16 122/79 99 11/09/24 09:09 11/09/24 09:09 11/09/24 09:09 11/09/24 09:09 11/09/24 09:09
[2024-11-09 10:23] VITALS: BP 122/74; PULSE 78
== END 2024-11-09 10:36 | disposition home or self-care (01) ==
LOC: ORWHC2ENDO 08:57
PROVIDERS: ATTEND Surgery Plastic and Reconstructive Surgery
DX: K29.30 Chronic superficial gastritis without bleeding (principal); D72.820 Lymphocytosis (symptomatic); K21.00 Gastro-esophageal reflux disease with esophagitis, without bleeding; K44.9 Diaphragmatic hernia without obstruction or gangrene; I10 Essential (primary) hypertension; I20.9 Angina pectoris, unspecified; E78.5 Hyperlipidemia, unspecified; M79.7 Fibromyalgia; J45.909 Unspecified asthma, uncomplicated; L40.50 Arthropathic psoriasis, unspecified; G43.909 Migraine, unspecified, not intractable, without status migrainosus; F41.9 Anxiety disorder, unspecified; F32.A Depression, unspecified; Z79.899 Other long term (current) drug therapy; Z87.891 Personal history of nicotine dependence; Z86.73 Personal history of transient ischemic attack (TIA), and cerebral infarction without residual deficits; Z88.6 Allergy status to analgesic agent; Z98.84 Bariatric surgery status; Z88.4 Allergy status to anesthetic agent; Z88.8 Allergy status to other drugs, medicaments and biological substances; Z91.048 Other nonmedicinal substance allergy status
CPT/HCPCS: 88305; 88342; 43239; J2003; J2704

== ENCOUNTER → 2024-11-25 | Outpatient (CLI) | payer BC, MEDICARE ==
[2024-11-25 16:11] VITALS: BP 127/90; PULSE 79; RESP 16; TEMP 98.2; BMI 41.7
--- NOTE | 2024-11-25 16:43 | P.BASOAP ---
Subjective Progress Note Date: 11/25/24 Needs more protein 20 grams...needs 80 grams of protein. She gained 4 pounds. Labs look great. Sleeve has distortion noted and recommend bypass. Objective - Vital Signs Vital signs: Vital Signs Temp 98.2 F 11/25/24 16:09 Pulse 79 11/25/24 16:09 Resp 16 11/25/24 16:09 BP 127/90 11/25/24 16:09 Pulse Ox FiO2 Intake & Output 11/24/24 11/25/24 11/25/24 18:59 06:59 18:59 Weight 103.419 kg Assessment/Plan Plan: Date: 11/25/24 Initial Weight: 101.718 kg Initial BMI: 41.0 Current Weight: 103.419 kg Current BMI: 41.7 Type of Surgery: Total Volume in Band: Previous Volume: Volume Removed: Volume Added: Band Size:
== END ==
LOC: BARWHC3 15:00
PROVIDERS: ATTEND Surgery Plastic and Reconstructive Surgery
DX: E66.01 Morbid (severe) obesity due to excess calories (principal); Z68.41 Body mass index [BMI] 40.0-44.9, adult; Z91.048 Other nonmedicinal substance allergy status; Z88.6 Allergy status to analgesic agent; Z88.8 Allergy status to other drugs, medicaments and biological substances; F17.200 Nicotine dependence, unspecified, uncomplicated
CPT/HCPCS: 99211

== ENCOUNTER → 2024-11-30 | Outpatient (CLI) | payer BC, MEDICARE ==
[2024-12-01 08:57] VITALS: BMI 41.7
== END ==
LOC: BARWHC3 13:06
PROVIDERS: ATTEND Surgery Plastic and Reconstructive Surgery
DX: E66.01 Morbid (severe) obesity due to excess calories (principal); F17.200 Nicotine dependence, unspecified, uncomplicated; Z68.41 Body mass index [BMI] 40.0-44.9, adult; Z91.048 Other nonmedicinal substance allergy status; Z71.3 Dietary counseling and surveillance; Z88.6 Allergy status to analgesic agent; Z88.8 Allergy status to other drugs, medicaments and biological substances
CPT/HCPCS: 97804